=== PATIENT | female | born 1950 | race Caucasian/White ===

== ENCOUNTER → 2017-09-17 | Outpatient (CLI) | payer OTHER ==
[~2017-09-17] MED LIST: ASPIRIN81 M2 PO; ATENOLOL 50MG T50 MG PO; CARTIA XT240 M1 PO; DEMADEX20 MG PO; DILTIAZEM 24HR120 M2 PO; DOXYCYCLINE 10100 MG PO; KEFLEX500 MG PO; KETOCONAZOLE60 GM; KLOR-CON 1010 MEQ PO; LEVAQUIN 500 M500 M2 PO; LISINOPRIL20 MG PO; METFORMIN HCL500 MG PO; NEXIUM20 M1 PO; PAXIL 20 MG TAB20 M1 PO; PHENERGAN 25 MG25 M1 PO; PRADAXA150 MG PO; TRAMADOL 50 MG50 MG PO; VESICARE10 M1 PO; VITAMIN B-12500 MCG PO; ZOCOR20 MG PO
--- NOTE | ~2017-09-17 | 2DMMODE ---
[facility] [email or web address] [address] 2 D/M-MODE ECHOCARDIOGRAM Name: SHAYAN JONES Room #: REG CL [facility]#: [id number] Admission: 09/17/17 Attend Phys: Yakov Silva MD Discharge: Date of : 52 Date of Service: 09/17/17 1107 Report #: [id number] THIS REPORT FOR: //name// APPROVED REPORT Study performed: 09/17/2017 09:29:43 EXAM: Comprehensive 2D, Doppler, and color-flow Echocardiogram Patient Location: Echo lab Status: routine BSA: 2.59 HR: 98 bpm BP: 164/85 mmHg Other Information Study Quality: Technically Difficult Indications Diabetes Atrial Fibrillation Hypertension/HDD Echo Enhancing Agent Indication: Endocardial border delineation Agent(s) / Amount(s) Used: Agitated Saline 6 cc Optison 5 cc 2D Dimensions RVDd: 37.22 mm LVEF(%): 56.90 (>50%) IVSd: 10.13 (7-11mm) LVOT Diam: 23.15 (18-24mm) LVDd: 49.07 mm PWd: 11.19 (7-11mm) Ascending Ao: 29.38 (22-36mm) LVDs: 34.40 (25-40mm) Aortic Root: 26.46 mm IVC: 25.00 mm Terry's LVEF: 56.90 % Volumes Left Atrial Volume (Systole) Single Plane 4CH: 65.77 mL Single Plane 2CH: 54.05 mL LA ESV Index: 24.00 mL/m2 Aortic Valve AoV Peak Mateo.: 1.04 m/s AO Peak Gr.: 4.30 mmHg LVOT Max P.45 mmHg [facility] [address] [place] [address] 2 D/M-MODE ECHOCARDIOGRAM Name: SHAYAN JONES Room #: [facility]#: [id number] Admission: 09/17/17 Attend Phys: Yakov Silva MD Discharge: Date of : 52 Date of Service: 09/17/17 1107 Report #: [id number] LVOT Max V: 0.78 m/s MAXIMO Vmax: 3.18 cm2 Mitral Valve MV Decel. Time: 148.04 ms MV E Max Mateo.: 1.35 m/s IVRT: 57.67 ms Pulmonary Valve PV Peak Mateo.: 0.89 m/s PV Peak Gr.: 3.15 mmHg Pulmonary Vein P Vein S: 0.55 m/s P Vein D: 1.03 m/s P Vein S/D Ratio: 0.53 Tricuspid Valve TR Peak Mateo.: 3.12 m/s RAP Estimate: 10.00 mmHg TR Peak Gr.: 38.85 mmHg PA Pressure: 50.00 mmHg Left Ventricle The left ventricle is normal size. There is normal left ventricular wall thickness. Left ventricular systolic function is mildly decreased. LVEF is 45-50%. This study is not technically sufficient to allow evaluation of the LV diastolic function due to atrial fibrillation. Right Ventricle Right ventricle is at the upper limits of normal. The right ventricular systolic function is normal. Atria The left atrium size is normal. Right atrium is mildly dilated. Aortic Valve The aortic valve is not well visualized. No aortic regurgitation is present. There is no aortic valvular stenosis. Mitral Valve The mitral valve is normal in structure. Trace mitral regurgitation. No evidence of mitral valve stenosis. Tricuspid Valve The tricuspid valve is normal in structure. Trace tricuspid [facility] [address] [place] [address] 2 D/M-MODE ECHOCARDIOGRAM Name: MARBELLADUANESHAYAN Oly Room #: REG [facility]#: [id number] Admission: 09/17/17 Attend Phys: Yakov Silva MD Discharge: Date of : 52 Date of Service: 09/17/17 1107 Report #: [id number] regurgitation. PAP is estimated at 43 mmHg. Pulmonic Valve Pulmonic valve is not well visualized. Great Vessels The aortic root is normal in size. IVC is dilated and collapses >50% with inspiration. Pericardium There is no pericardial effusion. <Conclusion> Technically difficult study The left ventricle is normal size. There is normal left ventricular wall thickness. LVEF is 45-50%. Right ventricle is at the upper limits of normal. The left atrium size is normal. The aortic valve is not well visualized. Trace mitral regurgitation. Trace tricuspid regurgitation. PAP is estimated at 43 mmHg. <ELECTRONICALLY SIGNED> By: Yakov Silva MD 09/17/17 1107 1107 110 Yakov Silva MD /INF
== END ==
LOC: CV 07:14
DX: I48.91 Unspecified atrial fibrillation (principal); I10 Essential (primary) hypertension; E11.9 Type 2 diabetes mellitus without complications

== ENCOUNTER → 2018-03-12 | Outpatient (CLI) | payer OTHER ==
[~2018-03-12] VITALS: Ht 175.3 cm; Wt 159.3 kg
[~2018-03-12] MED LIST changes: +ATORVASTATIN CA40 MG PO; +ELIQUIS5 MG PO; +HYDROCODON-ACE1 EAC7 PO; +KETOCONAZOLE15 GM TOP; +NEURONTIN 300300 M1 PO
[2018-03-12 14:59] VITALS: BP 140/87
== END ==
LOC: PAIN 10:24
DX: M48.061 Spinal stenosis, lumbar region without neurogenic claudication (principal)

== ENCOUNTER → 2018-04-30 | Outpatient (CLI) | payer OTHER ==
[~2018-04-30] VITALS: Ht 175.3 cm; Wt 150.6 kg
--- NOTE | ~2018-04-30 | HPC ---
[facility] [address] [place] [address] PAIN MANAGEMENT CONSULTATION Name: SHAYAN JONES Room #: REG [facility] Noah.#: [id number] Admission: 04/30/18 Attend Phys: Sylvain Bautista MD Discharge: Date of : 52 Report #: [id number] THIS REPORT FOR: //name// CC: Clyde Bautista DATE OF SERVICE: 04/30/2018 CHIEF COMPLAINT: Here for medicine renewal. HISTORY: The patient is a 68-year-old female who has been experiencing pain since 1999. Continues to have pain in her lower back and has some pain radiating down to her legs. She has been diagnosed with spinal stenosis. Feels that the use of gabapentin and [place] have been beneficial. Rates her pain today as a 2/10. Pain continues to radiate down into both legs. Pain involves her thighs. Feels that her pain is exacerbated by "everything." Does not feel that anything significantly alleviates her pain, but finds that the gabapentin and the [place] medications provide some benefit. She would like to have her medications renewed. ALLERGIES: LEVAQUIN. CURRENT MEDICATIONS: Ketaconazole cream, Lipitor 40 mg, Eliquis 5 mg b.i.d., doxycycline 100 mg, diltiazem 120 mg, metformin 500 mg, potassium 10 mEq, Paxil 20 mg total of 40 mg daily, Nexium 20 mg, tramadol 50 mg q. 6 hours p.r.n., VESIcare 10 mg, atenolol 50 mg b.i.d., aspirin 81 mg, Demadex 20 mg, Zestril 20 mg. PAIN CLINIC ASSESSMENT/PQRS: 1. The patient is not being treated for osteoarthritis or rheumatoid arthritis. 2. Height 5 feet 9 inches, weight 322 pounds, BMI is 49. 3. Vital signs: Blood pressure is 110/95, pulse 125, respiratory rate 16, room air saturation is 98%. 4. Pain intensity 05/16. 5. Fall risk. The patient has not fallen in the last 3 months. 6. Blood thinner. The patient is on Eliquis because of history of atrial fibrillation. 7. History of hypertension. The patient is being treated for hypertension. 8. Opioids greater than 6 weeks. The patient [facility]. 9. Risk assessment tool, moderate use for opioid. 10. Functional assessment tool 53/70. 11. Recreational drug use. The patient denies use of recreational drugs. 12. Tobacco: The patient denies use of tobacco. 13. Alcohol: The patient denies use of alcoholic beverages. [address] [address] PAIN MANAGEMENT CONSULTATION Name: SHAYAN JONES Room #: REG [facility].#: [id number] Admission: 04/30/18 Attend Phys: Sylvain Bautista MD Discharge: Date of : 52 Report #: [id number] PHYSICAL EXAMINATION: GENERAL: The patient is a well-developed, well-nourished, obese white female, appears her stated age. She is alert and oriented x 3. Her affect is appropriate. Speech is fluent. HEENT: Normocephalic, atraumatic. Extraocular eye muscles intact. Sclerae nonicteric. Mucous membranes are moist. NECK: The patient is without adenopathy or JVD. LUNGS: Difficult to appreciate secondary to the patient's body habitus. No respiratory distress. HEART: History of atrial flutter. MUSCULOSKELETAL: The patient is in a wheelchair. The patient is without significant scoliosis, kyphosis or lordosis. Complains of pain in the lower back with pain that continues to radiate down into her legs. Has worsening of pain with prolonged standing. Complains of pain in her right knee. Has lower extremity edema with a history of lymphedema. IMPRESSION: 1. History of spinal stenosis with lumbar radiculopathy and pain in the L5 dermatomal distribution. 2. Hypertension. 3. Hyperlipidemia. 4. Depression. 5. Obstructive sleep apnea. 6. History of atrial fibrillation. 7. History of cellulitis. 8. History of lymphedema. 9. Type 2 diabetes. RECOMMENDATIONS: We discussed treatment options with the patient. At this juncture, we will continue with her medications. It seems that the medications going reasonably well. We will renew the hydrocodone 5 mg 1 p.o. t.i.d. The patient will continue the gabapentin 300 mg t.i.d. We will continue to monitor her progress. We explained that opioid medications can sometimes become less effective over time because of the development of tolerance. The patient also is aware of the possibility of addiction of developing secondary to use of opioid medications on a chronic basis. She feels her medications are helpful. I would like to have her medications renewed. A script for those medications have been rewritten. She will call us if she has any concerns. We would like to thank you for letting us participate in her care. We hope she continues to improve. By: 1814 0454 Sylvain Bautista MD /sascha
[2018-04-30 11:18] VITALS: BP 110/97
--- NOTE | 2018-04-30 11:48 | NUR ---
Pain Clinic Assessment: 1. History of Osteoarthritis: History of Rheumatoid Arthritis: 2. Height: 5 ft. 9 in. 175.3 cm. Weight: 332.0 lb. oz. 150.595 kg. Patient's BMI: 49.0 3. Vital Signs: BP: 110/97 Pulse: 125 Resp: 16 Temp: 02 Sat: 98 ECG Mon: 4. Pain Intensity: 2 5. Fall Risk: Dizziness: N Needs help standing or walking: Y Fallen in the last 3 months: N Fall risk comments: 6. Patient on Blood Thinner: *ELOQUIS 7. History of Hypertension: Y 8. Opioid Therapy greater than 6 weeks: N Opiate Contract Signed: 9. Risk Assessment Tool Provided: 10. Functional Assessment Tool: 53/ 11. Recreational Drug Use: Never Drug Type: Tobacco Use: Never Smoker Tobacco Type: Amount or Packs/day: How Many Years: Alcohol Use: No Frequency: Quant:
== END ==
LOC: PAIN 07:05
DX: M48.061 Spinal stenosis, lumbar region without neurogenic claudication (principal); M54.16 Radiculopathy, lumbar region; I10 Essential (primary) hypertension; E78.5 Hyperlipidemia, unspecified; F32.9 Major depressive disorder, single episode, unspecified; G47.33 Obstructive sleep apnea (adult) (pediatric); I48.91 Unspecified atrial fibrillation; E11.9 Type 2 diabetes mellitus without complications; Z87.2 Personal history of diseases of the skin and subcutaneous tissue; Z79.899 Other long term (current) drug therapy

== ENCOUNTER 2018-06-18 20:40 | Emergency (ER) | payer OTHER ==
[~2018-06-18] VITALS: Ht 175.3 cm; Wt 154.2 kg
[2018-06-18 21:44] LABS: CALCIUM 8.8 mg/dL (8.5-10.1); CREATININE 0.9 mg/dL (0.6-1.0); POTASSIUM 5.1 mmol/L (3.5-5.1)
[2018-06-18 22:31] LABS: BASOPHILS 0.9 % (0.0-2.0); EOSINOPHILS 3.2 % (0.0-3.0); HEMATOCRIT 37.7 % (37.0-47.0); HEMOGLOBIN 12.5 gm/dL (12.0-15.0); LYMPHOCYTES 19.9 % (24.0-44.0); MCH 28.5 pg (26.0-34.0); MCHC 33.1 g/dL (28.0-37.0); MONOCYTES 6.7 % (1.0-8.0); PLATELET COUNT 271 thou/uL (150-400); POLYS 69.3 % (36.0-66.0); RBC 4.39 mil/uL (4.20-5.00); RDW 14.5 % (10.5-14.5); WBC 7.2 thou/uL (4.0-11.0)
[2018-06-18 23:54] VITALS: BP 112/52
--- NOTE | 2018-06-20 13:26 | EKG ---
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 : 1950 Requested By: Elliott Osman Order Number: [id number] MD: David Nieves Measurements Intervals [place] Rate: 97 P: CO: QRS: -61 QRSD: 112 T: 8 QT: 375 QTc: 477 Interpretive Statements Atrial flutter Left anterior fascicular block Abnormal R-wave progression, late transition Compared to ECG 03/06/2016 11:24:19 No significant change was found Electronically Signed On 06-20-2018 13:26:20 CDT by David Nieves [email or web address] ��������������������������������������������� <ELECTRONICALLY SIGNED> ���������������������������������������� By: David Nieves MD, [facility] ��������������������������������������������� 06/20/18 1324 19 19 David Nieves MD, [facility] /EPI
== END 2018-06-18 23:38 | disposition home or self-care (01) ==
LOC: ER 20:40
PROVIDERS: Emergency Medicine
DX: E87.5 Hyperkalemia (principal); E11.9 Type 2 diabetes mellitus without complications; I10 Essential (primary) hypertension; Z88.1 Allergy status to other antibiotic agents

== ENCOUNTER 2018-06-21 14:09 | Inpatient (IN) | payer OTHER ==
[~2018-06-21] VITALS: Ht 22.9 cm; Wt 152.8 kg
--- NOTE | ~2018-06-21 | D ---
[facility] [place] [address] DISCHARGE SUMMARY Name: SHAYAN JONES Room #: 421-P [facility] IN .R.#: [id number] Admission: 06/21/18 ������������������ Attend Phys: Claudia Vigil Discharge: ������������������ Date of : 52 Report #: [id number] THIS REPORT FOR: //name// CC: Clyde Alston FINAL DIAGNOSES: 1. Uncontrolled diabetes type 2. 2. Atrial fibrillation. 3. Morbid obesity. HOSPITAL COURSE: The patient was admitted with uncontrolled blood sugars at home. She had failed oral treatment and the plan was to switch her to insulin. She received insulin administration education from nursing staff. A consult to the dietitian was placed for meal education for home. She was started on Lantus at bedtime with NovoLog at meals and doses were gradually increased. Other home medications were continued. Blood sugars were in the 200-300 range, which were improvement from home when she was running over 500 on oral treatment. On the day of discharge, she was awake and alert with stable vital signs. Two sets of lab work had revealed normal potassium level. Her exam was unremarkable including clear lung sounds, irregular heart sounds, obese abdomen with normal bowel sounds, and 1+ edema. DISPOSITION: She is discharged to home with diabetic diet, activity as tolerated. She will resume all home medications plus Lantus 35 units at bedtime and NovoLog 18 units with meals. I have asked her to check her blood sugars 4 times a day and to call in to the office daily and we will give additional instructions on insulin dosing for home. ��������������������������������������������� ���������������������������������������� By: ��������������������������������������������� 1326 1432 Pasha Flaherty MD /nt
[2018-06-21 17:21] VITALS: BP 130/73
--- NOTE | 2018-06-21 20:08 | NUR ---
PT ARRIVED TO FLOOR FROM [facility] OFFICE AT 1600.ADMISSION HX,ASSESSMENT AND CARE PLAN COMPLETED.DR OCHOA CALLED FOR ADMISSION ORDER AND MESSAGE LEFT. PT'S HAS $712 AND SOME CREDIT CARDS. SECURITY CALLED AND WAS TAKEN TO SAFE.REPORT OFF TO NOC RN.
[2018-06-21 20:49] LABS: ABSOLUTE NEUTROPHILS 4.9 thou/uL (1.4-8.2); BASOPHILS 0.9 % (0.0-2.0); EOSINOPHILS 3.4 % (0.0-3.0); HEMATOCRIT 40.6 % (37.0-47.0); HEMOGLOBIN 13.3 gm/dL (12.0-15.0); LYMPHOCYTES 21.6 % (24.0-44.0); MCH 27.9 pg (26.0-34.0); MCHC 32.7 g/dL (28.0-37.0); MCV 85.3 fL (80.0-100.0); MONOCYTES 8.9 % (1.0-8.0); PLATELET COUNT 262 thou/uL (150-400); POLYS 65.2 % (36.0-66.0); RBC 4.76 mil/uL (4.20-5.00); RDW 14.3 % (10.5-14.5); WBC 7.5 thou/uL (4.0-11.0)
[2018-06-21 20:56] LABS: CALCIUM 9.4 mg/dL (8.5-10.1); CREATININE 0.9 mg/dL (0.6-1.0); POTASSIUM 4.8 mmol/L (3.5-5.1)
[2018-06-21 21:59] VITALS: BP 110/45
--- NOTE | 2018-06-22 04:26 | NUR ---
GOT A CALL BACK FROM DR OCHOA.ADMISSION ORDERS NOTED AND CARRIED OUT.PT EDUCATED ON INSULIN ADMINISTRATION AND MGT.PT VOICED UNDERSTANDING.PT C/O BACK PAIN,ORDERS NOTED FROM DR SOTO,SEE EMAR.PT RESTING ON HER BED AT THIS TIME.CALL LIGHT WITHIN REACH.
[2018-06-22 04:42] VITALS: BP 99/45
[2018-06-22 07:45] VITALS: BP 122/90
--- NOTE | 2018-06-22 14:08 | NUR ---
PT ADMITTED RELATED TO HYPERKALEMIA. CM REVIEWED CHART AND SPOKE WITH CARE TEAM. CM MET WITH PT AT BEDSIDE THIS DAY. PT IS A&O X4. CM ROLE INTRODUCED. 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 PT INDICATED SHE HAD BEEN INDEPENDENT WITH GAIT IN THE HOME AND ADLS. PT INDICATED SHE USES A CANE TO GET TO AND FROM THE CAR AND A 4WW WITH A SEAT AT WORK. PT INDICATED NO HOME HEALTH HISTORY. PT INDICATED SHE PLANS TO RETURN HOME ONCE MEDICALLY STABLE. CM TO FOLLOW INDICATED WITH DC PLANNING.
--- NOTE | 2018-06-22 16:20 | NUR ---
Assumed pt care at 7am.Pt in and out of bed today for activities.Assessment completed.vss.Diabetic education given and pt verbalized understanding.Dr Flaherty here.order noted.No verbal c/o.Will continue to monitor.
[2018-06-22 16:59] VITALS: BP 119/43
[2018-06-22 19:32] VITALS: BP 128/58
[2018-06-23 04:18] VITALS: BP 132/49
--- NOTE | 2018-06-23 04:27 | NUR ---
Assumed care of pt at 1900. Pt alert and oriented x4. C/o chronic back pain. Pt educated on how to draw and administer insulin. Pt requests to see weather observer before being discharged from the hospital. Will report this to am nurse. Will continue to monitor and assist with needs as they arise.
[2018-06-23 06:23] LABS: CALCIUM 8.9 mg/dL (8.5-10.1); CREATININE 0.8 mg/dL (0.6-1.0); POTASSIUM 4.3 mmol/L (3.5-5.1)
[2018-06-23 07:10] VITALS: BP 121/55
--- NOTE | 2018-06-23 09:27 | H ---
[facility] [place] [address] HISTORY AND PHYSICAL Name: SHAYAN JONES Room #: 421-P ADM [place] ..#: [id number] Admission: 06/21/18 ������������������ Attend Phys: Claudia Vigil Discharge: ������������������ Date of : 52 Report #: [id number] THIS REPORT FOR: //name// CC: Clyde Alston DATE OF SERVICE: 06/21/2018 CHIEF COMPLAINT: Uncontrolled blood sugars. HISTORY OF PRESENT ILLNESS: The patient is a 68-year-old female admitted from the office for treatment and control of her diabetes. In recent days, she has reported that her blood sugars have been over 500 on her meter. She was seen in the Emergency Room recently and had elevated potassium. She was seen in the office yesterday and directed for admission. PAST MEDICAL HISTORY: Hypertension; dyslipidemia; depression; obstructive sleep apnea, on CPAP; atrial fibrillation; history of cellulitis; lymphedema; diabetes type 2 and iron-deficiency anemia. She had colonoscopy in 2009. PAST SURGICAL HISTORY: Noncontributory. FAMILY HISTORY: Unknown. SOCIAL HISTORY: She lives at home. No chronic alcohol or tobacco use. ALLERGIES: None. MEDICATIONS: Amaryl 4 mg, gabapentin 300 mg t.i.d., hydrocodone 5 mg t.i.d., VESIcare 10 mg, Cartia XT 120 mg, atenolol 50 mg one and a half twice a day, Paxil 20 mg, Nexium, lisinopril 20 mg, metformin 500 mg b.i.d., Lipitor 40 mg, Eliquis 5 mg twice a day, potassium 10 mEq, torsemide 20 mg to 40 mg daily and aspirin 81 mg a day. REVIEW OF SYSTEMS: She denies headache, chest pain, shortness of breath, abdominal pain, nausea, vomiting, diarrhea, constipation, dysuria or syncope. PHYSICAL EXAMINATION: VITAL SIGNS: Temperature 36.4, pulse 51, respirations 18 and blood pressure 99/45. GENERAL: She is awake and alert, in no distress. HEAD AND NECK: Unremarkable. LUNGS: Clear. HEART: Regular. ABDOMEN: Soft. Normoactive bowel sounds. Obese. EXTREMITIES: With 1+ edema. NEUROLOGIC: Cranial nerves intact. [address] [address] HISTORY AND PHYSICAL Name: SHAYAN JONES Room #: 421-P [facility] IN [facility].#: [id number] Admission: 06/21/18 ������������������ Attend Phys: Claudia Vigil Discharge: ������������������ Date of : 52 Report #: [id number] LABORATORY DATA: On lab review, her potassium is 4.8. Blood sugars are 208 to 232. ASSESSMENT: 1. Uncontrolled diabetes type 2. 2. Hypertension. 3. Atrial fibrillation. 4. Obstructive sleep apnea, on CPAP. 5. Morbid obesity. 6. Recent hyperkalemia. PLAN: Insulin has been ordered and we will adjust her home medications accordingly. Follow up lab data. Nursing to instruct on insulin administration. ��������������������������������������������� <ELECTRONICALLY SIGNED> ���������������������������������������� By: Pasha Flaherty MD ��������������������������������������������� 06/23/18 0927 1020 1039 Pasha Flaherty MD /nt
[2018-06-23] MEDS ORDERED: LANTUS100 UNIT/M SUBQ (12:10)
[2018-06-23] MEDS ORDERED: NOVOLOG100 UNIT/1 SUBQ (12:11)
[2018-06-23 13:06] VITALS: BP 121/55
[2018-06-23 13:43] VITALS: BP 121/55
[2018-06-23 15:26] VITALS: BP 121/55
== END 2018-06-23 15:30 | disposition home or self-care (01) | DRG 638 ==
LOC: 4E 14:09 → ENTRNSPT 06-23 15:22 → EDTRNSPTSTS 06-23 15:25 → 4E 06-23 15:30
PROVIDERS: Internal Medicine Geriatric Medicine; ADMIT Internal Medicine
DX: E11.65 Type 2 diabetes mellitus with hyperglycemia (principal); Z68.43 Body mass index [BMI] 50.0-59.9, adult; I48.91 Unspecified atrial fibrillation; E66.01 Morbid (severe) obesity due to excess calories; I10 Essential (primary) hypertension; E78.5 Hyperlipidemia, unspecified; F32.9 Major depressive disorder, single episode, unspecified; G47.33 Obstructive sleep apnea (adult) (pediatric); Z79.01 Long term (current) use of anticoagulants; Z79.82 Long term (current) use of aspirin; Z79.899 Other long term (current) drug therapy; Z88.1 Allergy status to other antibiotic agents
CPT/HCPCS: 10783

== ENCOUNTER → 2018-06-25 | Outpatient (CLI) | payer OTHER ==
[~2018-06-25] VITALS: Ht 175.3 cm; Wt 143.9 kg
[~2018-06-25] MED LIST changes: +LANTUS100 UNIT/M SUBQ; +MEDROLDOSEPACK PO; +NOVOLOG100 UNIT/1 SUBQ
--- NOTE | ~2018-06-25 | HPC ---
[facility] [address] [place] [address] PAIN MANAGEMENT CONSULTATION Name: SHAYAN JONES Room #: REG [facility] Sarah#: [id number] Admission: 06/25/18 ������������������ Attend Phys: Sylvain Bautista MD Discharge: ������������������ Date of : 52 Report #: [id number] THIS REPORT FOR: //name// CC: Clyde Bautista DATE OF SERVICE: 06/25/2018 CHIEF COMPLAINT: "Here for medication renewal." HISTORY: The patient is a 68-year-old female who has been referred to the Pain Clinic. She continues to have pain, which has been problematic since 1999. It involves her lower back. She notes pain that radiates down into her legs. She has a diagnosis of spinal stenosis. She has been using gabapentin as well as [place]. These have been beneficial. She has pain that radiates down into both legs. Her thighs were involved as well. She feels that her pain is exacerbated by mostly activities of daily living. She has returned to the Pain Clinic with a desire to have her medications renewed. She is now on insulin. She has had atrial flutter. Now that she is on the insulin medication, she feels her thoughts are somewhat clearer. ALLERGIES: LEVAQUIN. CURRENT MEDICATIONS: Ketaconazole cream, Lipitor 40 mg, Eliquis 5 mg b.i.d., doxycycline 100 mg, diltiazem 120 mg, metformin 500 mg, potassium 10 mEq, Paxil 20 mg - 40 mg daily, Nexium 20 mg, tramadol 50 mg q. six hours p.r.n., VESIcare 10 mg, atenolol 50 mg b.i.d., aspirin 81 mg, Demadex 20 mg, Zestril 20 mg, and insulin Lantus 100 units, is not sure how much she takes at this juncture. PAIN CLINIC ASSESSMENT/PQRS: 1. The patient is not being treated for osteoarthritis or rheumatoid arthritis. 2. Height 5 feet 9 inches, weight is 317 pounds, BMI is 46.8. 3. Vital signs: Blood pressure 91/37 - second blood pressure 89/45, respiratory rate is 14, pulse 88, respiratory rate 14, and on room saturation is 97%. 4. Pain intensity: 4-5/10. 5. Fall risk: The patient has not fallen in the last 3 months. 6. Blood thinner: The patient is on Eliquis, has a history of atrial flutter. 7. History of hypertension: The patient is being treated for hypertension. 8. Opioids greater than 6 weeks. 9. Risk assessment tool: Low for opioid use. 10. Functional assessment tool: . 11. Recreational drug use: The patient denies use of recreational drugs. 12. Tobacco: The patient is a former smoker, stopped in 1999. 12. Alcohol: The patient denies use of alcoholic beverages. [address] [address] PAIN MANAGEMENT CONSULTATION Name: SHAYAN JONES Room #: REG [facility] Sarah#: [id number] Admission: 06/25/18 ������������������ Attend Phys: Sylvain Bautista MD Discharge: ������������������ Date of : 52 Report #: [id number] PHYSICAL EXAMINATION: GENERAL: The patient is a somewhat obese white female. She appears her stated age. She is alert and oriented x 3. Affect is appropriate. Speech is fluent. HEENT: Normocephalic, atraumatic. Extraocular eye muscles intact. Sclerae nonicteric. The patient has glasses. Mucous membranes are moist. NECK: Without adenopathy or JVD. LUNGS: Difficult to appreciate, secondary to the patient's body habitus. No respiratory distress. HEART: History of atrial flutter. MUSCULOSKELETAL: The patient is in a wheelchair. Without significant scoliosis, kyphosis, or lordosis. She has pain and discomfort in the lower portion of her back with pain radiating down into her legs. Pain worsens with standing. She has a history of spinal stenosis. She complains of right knee pain and has edema with a lymphedema history in the lower extremities. IMPRESSION: 1. History of spinal stenosis with lumbar radicular pain in the L5 dermatomal distribution. 2. Hypertension. 3. Hyperlipidemia. 4. Depression. 5. Obstructive sleep apnea. 6. History of atrial fibrillation. 7. History of cellulitis. 8. History of lymphedema. 9. Type 2 diabetes. RECOMMENDATIONS: We discussed treatment options with the patient. At this juncture, we will continue with her medications. A script for her medications has been re-written. She will continue with the gabapentin medication 300 mg one p.o. t.i.d. and she will continue with hydrocodone 5/325s one p.o. t.i.d. The patient feels that the insulin may have helped clear her sensorium somewhat. She will continue with and monitor her blood sugars. She will call us if she has any concerns. We would like to thank you for letting us participate in her care. We hope she continues to improve. ��������������������������������������������� ���������������������������������������� By: ��������������������������������������������� 1719 0508 Sylvain Bautista MD /nt
[2018-06-25 11:25] VITALS: BP 91/37
== END ==
LOC: PAIN 06-18 06:50
DX: M48.061 Spinal stenosis, lumbar region without neurogenic claudication (principal); M54.16 Radiculopathy, lumbar region; I10 Essential (primary) hypertension; E78.5 Hyperlipidemia, unspecified; E11.9 Type 2 diabetes mellitus without complications; G47.33 Obstructive sleep apnea (adult) (pediatric); I48.91 Unspecified atrial fibrillation; F32.9 Major depressive disorder, single episode, unspecified; I89.0 Lymphedema, not elsewhere classified; L03.90 Cellulitis, unspecified; Z87.2 Personal history of diseases of the skin and subcutaneous tissue; Z79.899 Other long term (current) drug therapy

== ENCOUNTER → 2018-07-23 | Outpatient (CLI) | payer OTHER ==
[~2018-07-23] VITALS: Ht 175.3 cm; Wt 159.9 kg
[2018-07-23 10:50] VITALS: BP 144/62
--- NOTE | 2018-07-23 11:02 | NUR ---
Pain Clinic Assessment: 1. History of Osteoarthritis: History of Rheumatoid Arthritis: 2. Height: 5 ft. 9 in. 175.3 cm. Weight: 352.6 lb. oz. 159.939 kg. Patient's BMI: 52.0 3. Vital Signs: BP: 144/62 Pulse: 95 Resp: 20 Temp: 02 Sat: 98 ECG Mon: 4. Pain Intensity: 8 5. Fall Risk: Dizziness: Y Needs help standing or walking: Y Fallen in the last 3 months: N Fall risk comments: 6. Patient on Blood Thinner: *ELOQUIS 7. History of Hypertension: Y 8. Opioid Therapy greater than 6 weeks: Y Opiate Contract Signed: 06/25/18 9. Risk Assessment Tool Provided: Opioid Risk Tool 10. Functional Assessment Tool: 11. Recreational Drug Use: Never Drug Type: Tobacco Use: Former Smoker Tobacco Type: Amount or Packs/day: How Many Years: Alcohol Use: No Frequency: Quant:
--- NOTE | 2018-07-30 00:33 | HPC ---
[facility] [address] [place] [address] PAIN MANAGEMENT CONSULTATION Name: SHAYAN JONES [id number] Admission: 07/23/18 ������������������ Attend Phys: Sylvain Bautista MD Discharge: ������������������ Date of : 52 Report #: [id number] THIS REPORT FOR: //name// CC: PUNEET Bautista DATE OF SERVICE: 07/23/2018 CHIEF COMPLAINT: Low back pain, here for refill of medications. HISTORY: The patient is a 68-year-old female who has been seen in the pain clinic because of chronic pain. She has had back problems since about 1999. Has pain in her lower back. Has had pain that radiates down into the L5-S1 dermatomal distribution. Has been diagnosed with spinal stenosis. Finds that the gabapentin medication is helpful. Has been using [place] as well. Notes that activities of daily living can exacerbate her pain and discomfort. She notes that her sciatic pain has been more problematic since we saw her last. States that the pain has awaken her up at night. Has found it difficult to move her left leg on occasion. She has been somewhat tearful at night because of the severity of pain. It involves both sides at this juncture. ALLERGIES: LEVAQUIN. CURRENT MEDICATIONS: Ketaconazole cream, Lipitor 40 mg, Eliquis 5 mg b.i.d., doxycycline 100 mg, diltiazem 120 mg, metformin 500 mg, potassium 10 mEq, Paxil 40 mg daily, Nexium 20 mg, tramadol 50 mg q.6 hours., VESIcare 10 mg, atenolol 50 mg b.i.d., aspirin 81 mg, Demadex 20 mg, Zestril 20 mg, insulin Lantus 100 units. The patient uses insulin as prescribed. PAIN CLINIC ASSESSMENT/PQRS: 1. The patient is not being treated for osteoarthritis or rheumatoid arthritis, does have some in the low back area. 2. Height 5 feet 9 inches, weight 352 pounds, BMI is 52. 3. Vital signs: Blood pressure 141/62, pulse 95, respiratory rate 20, room air saturation 98%. 4. Pain intensity 11/13. 5. Fall risk. The patient has not fallen in the last 3 months. 6. Blood thinner. The patient is on Eliquis. 7. History of hypertension. The patient is being treated for hypertension. 8. Opioids greater than 6 weeks. The patient receives her medication from [facility]. 9. Risk assessment tool, low for opioid use. 10. Functional assessment tool . 11. Recreational drug use. The patient denies use of recreational drugs. 12. Tobacco: The patient is a former smoker. [address] [address] PAIN MANAGEMENT CONSULTATION Name: SHAYAN JONES [facility] [id number] Admission: 07/23/18 ������������������ Attend Phys: Sylvain Bautista MD Discharge: ������������������ Date of : 51 Report #: [id number] 13. Alcohol: The patient denies use of alcoholic beverages at this juncture. PHYSICAL EXAMINATION: GENERAL: The patient is a well-developed, well-nourished, somewhat morbidly obese white female, appears her stated age. She is alert and oriented x 3. Affect is appropriate. Speech is fluent. HEENT: Normocephalic, atraumatic. Extraocular eye muscles intact. Sclerae nonicteric. Mucous membranes are moist. NECK: Without adenopathy or JVD. LUNGS: Generally clear to auscultation. The patient provide some difficulty in auscultation secondary to her body habitus. HEART: History of atrial fibrillation. MUSCULOSKELETAL: The patient is in a wheelchair. The patient without significant scoliosis, kyphosis, or lordosis. Complains of pain and discomfort in lower portion of her back with pain that radiating down into the sciatic areas of her legs. States that at night, the pain sometimes become quite problematic and makes sleeping, difficult. Lymphedema in the lower extremities. IMPRESSION: 1. History of spinal stenosis with lumbar radicular pain in the L5 dermatomal distribution. 2. Hypertension. 3. Hyperlipidemia. 4. Depression. 5. Obstructive sleep apnea. 6. Atrial fibrillation. 7. Cellulitis. 8. Lymphedema. 9. Type 2 diabetes. RECOMMENDATIONS: We discussed treatment options with the patient. At this juncture, we will continue with her medications. She finds that the medications are helpful. She has been having some episodes where her pain has been quite problematic with radiation down into her legs at night. These pains have been quite severe. They have caused her to be tearful. She has returned today with a desire to continue with her medications. She is aware that opioid medications can be problematic in the long run. One could develop tolerance and find the medications, less effective. One could also developed a dependency on opioid medication. She feels that the medications are working well and would like to have them renewed. States she keeps her medications in a guarded area. A script for her medications have been rewritten. A script for hydrocodone 5/325 one p.o. t.i.d. as well as gabapentin 300 mg 1 p.o. t.i.d. have been rewritten. The patient will also be given a Medrol Dosepak to help with the sciatic pain. Hopefully, this will help decrease the pain and discomfort that she is having at [facility] [address] [place] [address] PAIN MANAGEMENT CONSULTATION Name: SHAYAN JONES [facility] [id number] Admission: 07/23/18 ������������������ Attend Phys: Sylvain Bautista MD Discharge: ������������������ Date of : 51 Report #: [id number] this juncture. We would like to thank you for letting us participate in her care. We hope she continues to improve. ��������������������������������������������� <ELECTRONICALLY SIGNED> ���������������������������������������� By: Sylvain Bautista MD ��������������������������������������������� 07/30/18 0033 1608 [id number] Sylvain Bautista MD /REMI
== END ==
LOC: PAIN 06:54
DX: G89.29 Other chronic pain (principal); M48.061 Spinal stenosis, lumbar region without neurogenic claudication; M54.40 Lumbago with sciatica, unspecified side; E78.5 Hyperlipidemia, unspecified; F32.9 Major depressive disorder, single episode, unspecified; G47.33 Obstructive sleep apnea (adult) (pediatric); I48.91 Unspecified atrial fibrillation; E11.9 Type 2 diabetes mellitus without complications; I10 Essential (primary) hypertension; Z88.8 Allergy status to other drugs, medicaments and biological substances; Z79.899 Other long term (current) drug therapy; Z79.891 Long term (current) use of opiate analgesic; Z79.84 Long term (current) use of oral hypoglycemic drugs; Z79.4 Long term (current) use of insulin

== ENCOUNTER → 2018-08-20 | Outpatient (CLI) | payer OTHER ==
[~2018-08-20] VITALS: Ht 175.3 cm; Wt 162.0 kg
[2018-08-20 09:48] VITALS: BP 117/72
--- NOTE | 2018-08-20 10:03 | NUR ---
Pain Clinic Assessment: 1. History of Osteoarthritis: Not Applicable History of Rheumatoid Arthritis: Not Applicable 2. Height: 5 ft. 9 in. 175.3 cm. Weight: 357.2 lb. oz. 162.025 kg. Patient's BMI: 52.7 3. Vital Signs: BP: 117/72 Pulse: 97 Resp: 20 Temp: 02 Sat: 97 ECG Mon: 4. Pain Intensity: 3 5. Fall Risk: Dizziness: N Needs help standing or walking: Y Fallen in the last 3 months: N Fall risk comments: 6. Patient on Blood Thinner: *ELOQUIS 7. History of Hypertension: Y 8. Opioid Therapy greater than 6 weeks: Y Opiate Contract Signed: 06/25/18 9. Risk Assessment Tool Provided: Opioid Risk Tool 10. Functional Assessment Tool: 11. Recreational Drug Use: Never Drug Type: Tobacco Use: Former Smoker Tobacco Type: Amount or Packs/day: How Many Years: Alcohol Use: No Frequency: Quant:
--- NOTE | 2018-08-23 12:51 | HPC ---
[facility] [address] [place] [address] PAIN MANAGEMENT CONSULTATION Name: SHAYAN JONES [facility] [id number] Admission: 08/20/18 ������������������ Attend Phys: Kirsten Sarkar Discharge: ������������������ Date of : 51 Report #: [id number] THIS REPORT FOR: //name// CC: Kirsten [facility]arkar [facility] DATE OF SERVICE: 08/20/2018 CHIEF COMPLAINT: Low back pain. HISTORY OF PRESENT ILLNESS: This is a 68-year-old female who returns to the pain clinic today for her chronic pain. She has had ongoing back pain that does radiate down her L5-S1 dermatomal distribution. She tells me that she is experiencing only pain in the posterior thighs today as well as in her lower back. She tells me that the Medrol Dosepak that Dr. Bautista prescribed for her last month was very helpful in reducing her pain. Her pain score today is 3/10. She said she has had a few flareups for a couple of days, but it has calmed down and is doing quite well. Her pain is worse with standing and walking. Her medication is helpful. She does use a walker and is seated in that today. The patient tells me that she does not have any problems with constipation or feeling overmedicated. We did discuss her blood sugars in relation to her steroid use. She tells me she had recently started insulin in June and is still trying to get the right units to be given, but her blood sugars did not flare when she took her Medrol Dosepak. She would like refills of her medication that she finds very helpful today. ALLERGIES: LEVAQUIN. CURRENT MEDICATIONS: Hydrocodone 5/325 t.i.d., Neurontin 30 mg t.i.d., NovoLog before meals, Lantus at bedtime, atorvastatin 40 mg daily, Eliquis 5 mg b.i.d., diltiazem 120 mg b.i.d., Paxil 40 mg daily, VESIcare 10 mg daily, atenolol 50 mg b.i.d., aspirin 81 mg daily. PQRS: 1. The patient is not being treated for osteoarthritis or rheumatoid arthritis, though does have some arthritic changes in her lower back. 2. Height is 5 feet 9 inches, weight is 357, BMI is 52. 3. VITAL SIGNS: Blood pressure 117/72, pulse is 97, respirations 20, oxygen sat is 97. 4. Pain score is 3/10. 5. Denies dizziness. Does use a walker and has not fallen in the last 3 months. 6. The patient does take Eliquis for blood thinner and does take medicines for hypertension. 7. Opioid therapy is greater than 6 weeks; therefore, an opioid signed contract is on the chart. Her risk assessment tool is low. [place] [address] PAIN MANAGEMENT CONSULTATION Name: ROBERTSHAYAN Room #: REG [facility] Smith#: [id number] Admission: 08/20/18 ������������������ Attend Phys: Kirsten Sarkar Discharge: ������������������ Date of : 51 Report #: [id number] 29/70. 8. Recreational drug use. She denies. She is a former smoker and does not drink alcohol. We did check the prescription monitoring system. The patient is filling appropriately in a timely fashion from Dr. Bautista and is due for her medications today. PHYSICAL EXAMINATION GENERAL: The patient is a well-developed, well-nourished, morbidly obese white female who appears her stated age. She is alert and orientated and her affect is appropriate. HEENT: Normocephalic, atraumatic. Extraocular eye muscles are intact. Mucous membranes are moist. HEART: History of atrial flutter. MUSCULOSKELETAL: The patient is seated in her walker chair today. She is without significant scoliosis, kyphosis or lordosis. She complains of pain that radiates across her lower back at the L5-S1 distribution down the posterior part of her buttocks into her thighs not past her thighs currently, though it has in the past. She has lymphedema in her lower extremities. Her lower extremity strength judged to be 4/5 in her muscle tone and strength. She walks with a slightly antalgic gait. We reviewed the fact that opiate medications are being used to provide analgesia adequate to support activities of daily living, not attempting to achieve a specific pain score on the 0-10 Visual Analog Scale. The current opiate medications are providing sufficient analgesia to allow the patient to participate in activities of daily living. The patient is not exhibiting any aberrant behavior suggestive of drug diversion. The patient is not having any adverse reactions to medications. The patient is not suffering from daytime somnolence or mental acuity changes. The patient is managing opiate-induced constipation with appropriate orme-swk-vhbgyfj agents and dietary considerations. The patient was counseled on concern for caution with operating a motor vehicle while using opiate medications. A physical exam was performed and the patient's functional status was evaluated. All patients with back pain were advised against the bed rest greater than 4 days and were advised to return to normal activities. Pain score assessment was noted and the treatment plan was reviewed with the patient. All current medications, both prescribed and OTC were reviewed and reconciled on the electronic medical record. Tobacco screening was accomplished and smoking cessation was advised when indicated. BMI was noted and diet/exercise modification was recommended for all patients following outside normal parameters. I reviewed with the patient today their responsibilities to safeguard [facility] [address] [place] [address] PAIN MANAGEMENT CONSULTATION Name: SHAYAN JONES Room #: REG [facility]#: [id number] Admission: 08/20/18 ������������������ Attend Phys: Kirsten Sarkar Discharge: ������������������ Date of : 51 Report #: [id number] prescription medications, reviewed their responsibility to utilize medications only as prescribed by the physician. They are to seek and receive pain medications only from 1 physician group ( [facility]). They are to use 1 pharmacy and keep the clinic informed if they change pharmacies. Their responsibilities include making followup visits in a timely fashion and to avoid abrupt discontinuation of medication usage. Their responsibilities further include bringing their medications (bottles from the pharmacy with residual pills) to the visit for possible confirmation of pill counts and the patient understands it is their responsibility to submit to random drug screens to ensure both that the medications prescribed are present, and that no other controlled substances are present. All prescriptions provided today were generated electronically. PLAN: 1. We discussed treatment options with the patient today. The patient feels like her current medications are very beneficial and would like to continue her hydrocodone and gabapentin. The patient falls at [address] below the CDC guidelines and this medication I think is helpful in keeping her active and working and is appropriate to refill that. Scripts given today for hydrocodone 5/325, #90 and gabapentin 300 mg 3 times a day, #90. 2. We did discuss the patient's blood sugars today. She tells me they are still running slightly higher than Dr. Alston would like them, but they have come down significantly from her 600. We discussed that the Medrol Dosepak does raise her blood sugars. She tells me they did raise slightly, but nothing as alarming as before. She understands that steroids can raise her blood sugar and will take those sparingly if she needs to, but she feels that her diabetes is getting better controlled since she has started her insulin. 3. The patient will return in 1 month for followup, appointment made today. 4. The patient is seen with Dr. Anthony Bautista who collaborated care. ��������������������������������������������� <ELECTRONICALLY SIGNED> ���������������������������������������� By: Kirsten Sarkar ��������������������������������������������� 08/23/18 1251 1040 [id number] Kirsten Sarkar /nt
== END ==
LOC: PAIN 06:56
DX: G89.29 Other chronic pain (principal); M54.5 Low back pain; Z88.8 Allergy status to other drugs, medicaments and biological substances; Z79.899 Other long term (current) drug therapy; Z79.891 Long term (current) use of opiate analgesic

== ENCOUNTER → 2018-09-17 | Outpatient (CLI) | payer OTHER ==
[~2018-09-17] VITALS: Ht 175.3 cm; Wt 163.2 kg
[~2018-09-17] MED LIST changes: -ATORVASTATIN CA40 MG PO; +KEFLEX500 M1 PO; +LIPITOR40 MG PO
[2018-09-17 09:20] VITALS: BP 127/96
--- NOTE | 2018-09-17 09:31 | NUR ---
Pain Clinic Assessment: 1. History of Osteoarthritis: no History of Rheumatoid Arthritis: Not Applicable 2. Height: 5 ft. 9 in. 175.3 cm. Weight: 359.8 lb. oz. 163.205 kg. Patient's BMI: 53.1 3. Vital Signs: BP: 127/96 Pulse: 120 Resp: 18 Temp: 02 Sat: 98 ECG Mon: 4. Pain Intensity: 3 5. Fall Risk: Dizziness: N Needs help standing or walking: Y Fallen in the last 3 months: N Fall risk comments: 6. Patient on Blood Thinner: *ELiquis 7. History of Hypertension: Y 8. Opioid Therapy greater than 6 weeks: Y Opiate Contract Signed: 06/25/18 9. Risk Assessment Tool Provided: Opioid Risk Tool 10. Functional Assessment Tool: 11. Recreational Drug Use: Never Drug Type: Tobacco Use: Former Smoker Tobacco Type: Amount or Packs/day: How Many Years: Alcohol Use: No Frequency: Quant:
--- NOTE | 2018-09-20 09:26 | HPC ---
[facility] [address] [place] [address] PAIN MANAGEMENT CONSULTATION Name: SHAYAN JONES [facility] [id number] Admission: 09/17/18 ������������������ Attend Phys: Kirsten Sarkar Discharge: ������������������ Date of : 51 Report #: [id number] THIS REPORT FOR: //name// CC: Kirsten Fallonsilverio Gamaliel DATE OF SERVICE: 09/17/2018 CHIEF COMPLAINT: Low back pain. HISTORY OF PRESENT ILLNESS: This is a very pleasant 68-year-old female who returns to the pain clinic today for her ongoing back pain. She tells me that it does radiate down her leg, past her knees, following the L5-S1 dermatomal distribution she tells me that some days in the past month, she did not even think about her pain. She felt like she had none at all. Then, other times she had flareups causing her even to awake during the night. Her pain is a 3/10 today, worse with standing and walking, though she does have pain sometimes when she is lying down as well. Her medications she finds very helpful. She tells me that she has no problems with constipation from her narcotic medicine and does not feel overmedicated. We did discuss the patient's blood sugars. She tells me it was 171 this morning that she is suffering from a respiratory infection and on antibiotics, so she feels that is the cause for it to be slightly elevated, though at lunchtime her blood sugars have been running at 90-120. She feels that they are better regulated than before using her insulin now and she did recently have an A1c drawn from Dr. Alston's office, though she does not know those results. I did remind her that she had a Medrol Dosepak in July that may have elevated her blood sugars slightly that caused an increase in her A1c also, but hopefully that with her insulin these numbers have gotten better. ALLERGIES: LEVAQUIN. CURRENT MEDICATIONS: Keflex 500 mg b.i.d., hydrocodone 5/325 t.i.d., Neurontin 300 mg t.i.d., insulin NovoLog sliding scale, Lantus 40 units at bedtime, Lipitor 40 mg daily, Eliquis 5 mg b.i.d., Cardizem 120 mg b.i.d., Paxil 40 mg daily, VESIcare 10 mg daily, atenolol 50 mg b.i.d., aspirin 81 mg daily. PQRS: She is not being treated for osteoarthritis or rheumatoid arthritis, though she does have some arthritic changes in her lumbar spine. Height is 5 feet 9 inches, weight is 359, BMI is 53. Vital signs, blood pressure 127/96, pulse is 120, respirations 18, oxygen sat is 98. Pain score is 3/10 while resting. Denies dizziness. She does use a walker. Has not fallen in the last 3 months. She is on a blood thinner, Eliquis. She does take medicine for hypertension. Her opiate therapy is greater than 6 weeks; therefore, an opiate signed contract is on the chart. Her risk assessment tool is low. Functional [address] [address] PAIN MANAGEMENT CONSULTATION Name: SHAYAN JONES [facility] #: [facility] [id number] Admission: 09/17/18 ������������������ Attend Phys: Kirsten Sarkar Discharge: ������������������ Date of : 51 Report #: [id number] assessment . Recreational drug use. She is a former smoker and does not drink alcohol. We did check the prescription monitoring system. The patient is filling appropriately for her medications and she is due today. We will check a random drug screen on her since there is not one on the chart and we have been seeing her for about 6 months now for medication management. PHYSICAL EXAMINATION: GENERAL: This is a well-developed, well-nourished, morbidly obese female who appears her stated age, placing her current pain score today at 3. She is alert and orientated and her affect is appropriate. HEENT: Normocephalic, atraumatic. Extraocular eye muscles are intact. Mucous membranes are moist. MUSCULOSKELETAL: She is seated in her walker chair today. She is without significant kyphosis, lordosis, or scoliosis. Complains of pain that radiates from her lower back down her L5-S1 dermatomal distribution of her left leg slightly past her knee down the posterior aspect. She does complain of some stabbing pain in this leg. She has lymphedema in her lower extremities. She walks with a slightly antalgic gait. Her lower extremity strength judged to be 4/5 and muscle tone and strength. We reviewed the fact that opiate medications are being used to provide analgesia adequate to support activities of daily living, not attempting to achieve a specific pain score on the 0-10 Visual Analog Scale. The current opiate medications are providing sufficient analgesia to allow the patient to participate in activities of daily living. The patient is not exhibiting any aberrant behavior suggestive of drug diversion. The patient is not having any adverse reactions to medications. The patient is not suffering from daytime somnolence or mental acuity changes. The patient is managing opiate-induced constipation with appropriate qbho-ehk-elfamyp agents and dietary considerations. The patient was counseled on concern for caution with operating a motor vehicle while using opiate medications. A physical exam was performed and the patient's functional status was evaluated. All patients with back pain were advised against the bed rest greater than 4 days and were advised to return to normal activities. Pain score assessment was noted and the treatment plan was reviewed with the patient. All current medications, both prescribed and OTC were reviewed and reconciled on the electronic medical record. Tobacco screening was accomplished and smoking cessation was advised when indicated. BMI was noted and diet/exercise modification was recommended for all patients following outside normal parameters. I reviewed with the patient today their responsibilities to safeguard prescription medications, reviewed their responsibility to utilize medications only as prescribed by the physician. They are to seek and receive pain medications only from 1 physician group ( [facility]). They are to use [address] [address] PAIN MANAGEMENT CONSULTATION Name: SHAYAN JONES Room #: REG [facility]#: [id number] Admission: 09/17/18 ������������������ Attend Phys: Kirsten Sarkar Discharge: ������������������ Date of : 51 Report #: [id number] pharmacy and keep the clinic informed if they change pharmacies. Their responsibilities include making followup visits in a timely fashion and to avoid abrupt discontinuation of medication usage. Their responsibilities further include bringing their medications (bottles from the pharmacy with residual pills) to the visit for possible confirmation of pill counts and the patient understands it is their responsibility to submit to random drug screens to ensure both that the medications prescribed are present, and that no other controlled substances are present. All prescriptions provided today were generated electronically. DIAGNOSES: 1. History of spinal stenosis with lumbar radicular pain at the L5 dermatomal distribution. 2. Hypertension. 3. Atrial fibrillation. 4. Lymphedema. 5. Type 2 diabetes, recently on insulin. PLAN: 1. We discussed treatment options with the patient today. The patient feels that her pain regimen is doing quite well. She says over the past 6 months she is better than before she came here. Script was given today for hydrocodone 5/325, #90 for 1 month and gabapentin 300 mg #90 with 2 additional refills. The patient is currently at 15 morphine MME's according to the CDC guidelines well below their threshold of 50. 2. We did collect a urine specimen on this patient today. 3. We did discuss her blood sugars again and they have slowly been getting better regulated since her insulin. The patient is seen today in collaboration with Dr. Eliseo Rodriguez who has discussed this patient and is available by phone if I needed to make any alterations in her plan of care. ��������������������������������������������� <ELECTRONICALLY SIGNED> ���������������������������������������� By: Kirsten Sarkar ��������������������������������������������� 09/20/18 0926 1021 [id number] Kirsten Sarkar /sascha
== END ==
LOC: PAIN 06:49
DX: M48.061 Spinal stenosis, lumbar region without neurogenic claudication (principal); M54.16 Radiculopathy, lumbar region; I10 Essential (primary) hypertension; I48.91 Unspecified atrial fibrillation; E11.9 Type 2 diabetes mellitus without complications; I89.0 Lymphedema, not elsewhere classified; Z79.4 Long term (current) use of insulin; Z79.899 Other long term (current) drug therapy

== ENCOUNTER → 2018-10-15 | Outpatient (CLI) | payer OTHER ==
[~2018-10-15] VITALS: Ht 175.3 cm; Wt 169.6 kg
[~2018-10-15] MED LIST changes: +NORCO 5-325 TA1 EAC1 PO; +SUPER B-50 COM1 EACH PO
--- NOTE | ~2018-10-15 | HPC ---
[facility] [address] [place] [address] PAIN MANAGEMENT CONSULTATION Name: SHAYAN JONES [id number] Admission: 10/15/18 ������������������ Attend Phys: Sylvain Bautista MD Discharge: ������������������ Date of : 52 Report #: [id number] THIS REPORT FOR: //name// CC: Clyde Bautista DATE OF SERVICE: 10/15/2018 CHIEF COMPLAINT: Here for medication renewal. The medications are helpful. HISTORY: The patient is a 68-year-old female who has been followed in the pain clinic because of pain that radiates down into her legs, knees and she is experiencing pain in the the L5-S1 dermatomal distribution. She has returned today for evaluation and assessment regarding her medications. She has pain in the low back that continues to radiate down into both thighs. She has also problems with fibromyalgia. Her pain in the low back area has been problematic since 1999. Notes that the pain is worse when she is standing. Notes that it can flare up. Pain intensity is a 2 today. Notes it is exacerbated with walking. Medications, continue to be beneficial and she has taken them as prescribed. She is not having any untoward problems with the opioid medications. Does have a history of elevated blood sugars. She is watching this. ALLERGIES: LEVAQUIN. CURRENT MEDICATIONS: Hydrocodone 5/325 one p.o. t.i.d., Neurontin 300 mg t.i.d., insulin NovoLog sliding scale, Lantus 40 units at bedtime, Lipitor 40 mg, Eliquis 5 mg b.i.d., Cardizem 120 mg b.i.d., Paxil 40 mg daily, VESIcare 10 mg daily, atenolol 50 mg b.i.d., aspirin 81 mg. PAIN CLINIC ASSESSMENT/PQRS: 1. The patient is not being treated for osteoarthritis. She is not being treated for rheumatoid arthritis. 2. Height 5 feet 9 inches, weight 374 pounds, BMI 55.2. 3. VITAL SIGNS: Blood pressure 137/82, pulse 95, respiratory rate 22, saturation 97%. 4. Pain intensity 05/16. 5. Fall history: The patient has not fallen in the last 3 months. 6. Blood thinner. The patient is on Eliquis for atrial flutter. 7. History of hypertension. The patient is being treated for hypertension. 8. The patient is not being treated for hypertension. The atenolol is for rate control. 9. Opioids greater than 6 weeks. The patient is receiving opioid medications from the pain clinic to help control her pain. 10. Risk assessment tool: Low for opioid use. 11. Functional assessment 229/70. [address] [address] PAIN MANAGEMENT CONSULTATION Name: SHAYAN JONES Room #: REG CL Sarah#: [id number] Admission: 10/15/18 ������������������ Attend Phys: Sylvain Bautista MD Discharge: ������������������ Date of : 52 Report #: [id number] 12. Recreational drug use. The patient denies. 13. Tobacco: The patient has not smoked since 2000. 14. Alcohol: The patient denies use of alcoholic beverages. PHYSICAL EXAMINATION: GENERAL: The patient is a well-developed, well-nourished white female. Morbidly obese. She is alert, oriented x 3. Her affect is appropriate. Speech is fluent. HEENT: Normocephalic, atraumatic. Extraocular eye muscles intact. Sclerae nonicteric. The patient is wearing glasses. Mucous membranes are moist. NECK: Without adenopathy or JVD. LUNGS: Difficult to hear given the patient's body habitus. No respiratory complaints. ABDOMEN: Protuberant. MUSCULOSKELETAL: The patient without significant scoliosis, kyphosis or lordosis. The patient has some pain that radiates down to the lower portion of her back into the L5-S1 dermatomal distribution on her left leg. Also, has some pain and problems with lymphedema in her lower extremities. Walks with an antalgic gait. She uses a rolling walker. Muscle strength is judged to be 4+/5 for the major muscle groups in the lower extremity and 5-/5 for the major muscle groups in the upper extremity. IMPRESSION: 1. History of spinal stenosis with lumbar radicular pain in the L5 dermatomal distribution. 2. Hypertension. 3. Rapid heart rate, treated with atenolol. 4. Hyperlipidemia. 5. Depression. 6. Obstructive sleep apnea. 7. Atrial flutter. 8. Cellulitis history. 9. Lymphedema. 10. Type 2 diabetes. RECOMMENDATIONS: We discussed treatment options with the patient. At this juncture, we will continue with her medication. She feels that the medication is helpful. She has been taking the medication as prescribed. She does not have any problems with it. We have discussed the risks and benefits of opioid medications intermediate. Some patients have had problems with medication where they become addictive. She does not feel that this is a concern for her at this juncture. She also is taking the medication as prescribed. We explained that sometimes pain medications are not effective over a long periods of time due to development of tolerance. The patient states that she is taking her medication as prescribed and would like to continue with its use. She finds that she is able to engage in activities, she would not be able to without its use. [facility] [address] [place] [address] PAIN MANAGEMENT CONSULTATION Name: SHAYAN JONES [facility] [id number] Admission: 10/15/18 ������������������ Attend Phys: Sylvain Bautista MD Discharge: ������������������ Date of : 52 Report #: [id number] her medications in a guarded area. She is aware that 72,000 people last year as a result of overdosing with medication. A script for her medications have been written. She will continue with hydrocodone 5/325 one p.o. t.i.d. The patient will also continue with Neurontin 300 mg 1 p.o. t.i.d. She will call us if she has any concerns. We would like to thank you for letting us participate in her care and can help control pain with complex medical regimen using opioid medications. ��������������������������������������������� ���������������������������������������� By: ��������������������������������������������� [id number] Sylvain Bautista MD /nt
[2018-10-15 09:56] VITALS: BP 137/82
--- NOTE | 2018-10-15 10:20 | NUR ---
Pain Clinic Assessment: 1. History of Osteoarthritis: no History of Rheumatoid Arthritis: Not Applicable 2. Height: 5 ft. 9 in. 175.3 cm. Weight: 374.0 lb. oz. 169.646 kg. Patient's BMI: 55.2 3. Vital Signs: BP: 137/82 Pulse: 95 Resp: 22 Temp: 02 Sat: 97 ECG Mon: 4. Pain Intensity: 2-TODAY 5. Fall Risk: Dizziness: N Needs help standing or walking: Y Fallen in the last 3 months: N Fall risk comments: 6. Patient on Blood Thinner: *Biancaquis 7. History of Hypertension: Y 8. Opioid Therapy greater than 6 weeks: Y Opiate Contract Signed: 06/25/18 9. Risk Assessment Tool Provided: Opioid Risk Tool 10. Functional Assessment Tool: 11. Recreational Drug Use: Never Drug Type: Tobacco Use: Former Smoker Tobacco Type: Amount or Packs/day: How Many Years: Alcohol Use: No Frequency: Quant:
== END ==
LOC: PAIN 06:43
DX: M48.061 Spinal stenosis, lumbar region without neurogenic claudication (principal); E78.5 Hyperlipidemia, unspecified; I10 Essential (primary) hypertension; F32.9 Major depressive disorder, single episode, unspecified; G47.33 Obstructive sleep apnea (adult) (pediatric); E11.9 Type 2 diabetes mellitus without complications; I89.0 Lymphedema, not elsewhere classified; Z88.8 Allergy status to other drugs, medicaments and biological substances; Z79.899 Other long term (current) drug therapy; Z79.4 Long term (current) use of insulin

== ENCOUNTER → 2018-11-17 | Outpatient (CLI) | payer OTHER ==
[~2018-11-17] VITALS: Ht 175.3 cm; Wt 170.7 kg
[2018-11-17 14:01] VITALS: BP 154/75
--- NOTE | 2018-11-17 14:23 | NUR ---
Pain Clinic Assessment: 1. History of Osteoarthritis: Left Lower Extremity Right Upper Extremity History of Rheumatoid Arthritis: Not Applicable 2. Height: 5 ft. 9 in. 175.3 cm. Weight: 376.4 lb. oz. 170.735 kg. Patient's BMI: 55.6 3. Vital Signs: BP: 154/75 Pulse: 100 Resp: 22 Temp: 02 Sat: 100 ECG Mon: 4. Pain Intensity: 2-TODAY 5. Fall Risk: Dizziness: N Needs help standing or walking: Y Fallen in the last 3 months: N Fall risk comments: 6. Patient on Blood Thinner: *ELiquis 7. History of Hypertension: Y 8. Opioid Therapy greater than 6 weeks: Y Opiate Contract Signed: 06/25/18 9. Risk Assessment Tool Provided: Opioid Risk Tool 10. Functional Assessment Tool: 11. Recreational Drug Use: Never Drug Type: Tobacco Use: Former Smoker Tobacco Type: Amount or Packs/day: How Many Years: Alcohol Use: No Frequency: Quant:
--- NOTE | 2018-11-18 15:37 | HPC ---
[facility] [address] [place] [address] PAIN MANAGEMENT CONSULTATION Name: SHAYAN JONES Room #: REG [facility]#: [id number] Admission: 11/17/18 Attend Phys: Kirsten Sarkar Discharge: Date of : 52 Report #: [id number] THIS REPORT FOR: //name// CC: Kirsten Sarkar [facility] DATE OF SERVICE: 11/17/2018 CHIEF COMPLAINT: Low back pain and bilateral leg pain. HISTORY OF PRESENT ILLNESS: This is a very pleasant 68-year-old female who returns to the pain clinic today for refill of her medications that she uses to help treat her low back pain that does radiate down her bilateral legs into her knees following the L5-S1 dermatomal distribution. She finds the medication of hydrocodone very beneficial in controlling some of her pain, rating her pain score today at 2/10. Her pain is exacerbated with standing and walking, but distraction and repositioning as well as medication is very helpful. She denies any problems with daytime sleepiness or constipation. The patient does report having some slight discomfort in her left shoulder. She is unsure what is causing that and it has been ongoing for several days. She does not remember injuring it in any way. ALLERGIES: LEVOFLOX, LEVAQUIN. CURRENT LIST OF MEDICATIONS: Minerva 5 mg 3 times a day, vitamin B12, vitamin B50 complex, gabapentin, NovoLog, Lantus, Lipitor, Eliquis, diltiazem, Paxil, VESIcare, atenolol, and aspirin. PQRS: 1. She is being treated for osteoarthritis and not being treated for rheumatoid arthritis. 2. Height is 5 feet 9 inches, weight is 376, BMI is 55. 3. Vital signs: Blood pressure 154/75, pulse is 100, respirations 22, oxygen sat is 100. 4. Pain score is 2/10. 5. Denies dizziness. Does need help walking. She uses a walker at all times. Has not fallen in the last 3 months. 6. The patient is on Eliquis and also takes medicine for hypertension. 7. Opioid therapy is greater than 6 weeks; therefore, an opioid signed contract is on the chart. Her risk assessment tool is low. Functional assessment is 29/70. 8. Recreational drug use, she denies. She is a former smoker and does not drink alcohol. According to the prescription monitoring system, the patient is filling appropriately for her medications. She is due to fill those medications today. We have also a random drug screen on the chart from earlier this year that is [place] [address] PAIN MANAGEMENT CONSULTATION Name: MARBELLADUANESHAYAN Room #: REG [facility] Luisa Smith#: [id number] Admission: 11/17/18 Attend Phys: Kirsten Sarkar Discharge: Date of : 52 Report #: [id number] PHYSICAL EXAMINATION: GENERAL: This is a well-developed, well-nourished white female who is morbidly obese. She is alert and orientated and her speech is fluent. HEENT: Normocephalic, atraumatic. Extraocular eye muscles are intact. Mucous membranes are moist. She is wearing glasses. NECK: Without adenopathy or JVD. ABDOMEN: Protuberant. MUSCULOSKELETAL: The patient walks without significant scoliosis, kyphosis or lordosis. She has pain that radiates from the lumbar spine down following the L5-S1 dermatomal distribution of her bilateral legs, left greater than right. She walks with an antalgic gait using a rolling walker. Her muscle strength judged to be 4/5 for all major muscle groups in her lower extremities. IMPRESSION: 1. History of spinal stenosis of the lumbar radicular pain following the L5 dermatomal distribution. 2. Hypertension. 3. Depression. 4. Obstructive sleep apnea. 5. Atrial flutter. 6. Lymphedema. 7. Type 2 diabetic. We reviewed the fact that opiate medications are being used to provide analgesia adequate to support activities of daily living, not attempting to achieve a specific pain score on the 0-10 Visual Analog Scale. The current opiate medications are providing sufficient analgesia to allow the patient to participate in activities of daily living. The patient is not exhibiting any aberrant behavior suggestive of drug diversion. The patient is not having any adverse reactions to medications. The patient is not suffering from daytime somnolence or mental acuity changes. The patient is managing opiate-induced constipation with appropriate [id number] agents and dietary considerations. The patient was counseled on concern for caution with operating a motor vehicle while using opiate medications. A physical exam was performed and the patient's functional status was evaluated. All patients with back pain were advised against the bed rest greater than 4 days and were advised to return to normal activities. Pain score assessment was noted and the treatment plan was reviewed with the patient. All current medications, both prescribed and OTC were reviewed and reconciled on the electronic medical record. Tobacco screening was accomplished and smoking cessation was advised when indicated. BMI was noted and diet/exercise modification was recommended for all patients following outside normal parameters. [address] [address] PAIN MANAGEMENT CONSULTATION Name: SHAYAN JONES Room #: REG JOSAFAT Smith#: [id number] Admission: 11/17/18 Attend Phys: Kirsten Sarkar Discharge: Date of : 52 Report #: [id number] I reviewed with the patient today their responsibilities to safeguard prescription medications, reviewed their responsibility to utilize medications only as prescribed by the physician. They are to seek and receive pain medications only from 1 physician group ( [facility]). They are to use 1 pharmacy and keep the clinic informed if they change pharmacies. Their responsibilities include making followup visits in a timely fashion and to avoid abrupt discontinuation of medication usage. Their responsibilities further include bringing their medications (bottles from the pharmacy with residual pills) to the visit for possible confirmation of pill counts and the patient understands it is their responsibility to submit to random drug screens to ensure both that the medications prescribed are present, and that no other controlled substances are present. All prescriptions provided today were generated electronically. PLAN: 1. We discussed treatment options with the patient today. Overall, the patient is doing quite well on current medication regimen. Scripts given today for hydrocodone 5/325, #90, as the patient is seen on a monthly basis. The patient will call in one month for an appointment. 2. The patient is seen with Dr. Anthony Bautista who collaborated care today as well. <ELECTRONICALLY SIGNED> By: Kirsten Sarkar 11/18/18 1537 [id number] Kirsten Sarkar /nt
== END ==
LOC: PAIN 11-12 09:16
DX: M54.16 Radiculopathy, lumbar region (principal); M48.062 Spinal stenosis, lumbar region with neurogenic claudication; I10 Essential (primary) hypertension; F32.9 Major depressive disorder, single episode, unspecified; G47.33 Obstructive sleep apnea (adult) (pediatric); E11.9 Type 2 diabetes mellitus without complications; I48.92 Unspecified atrial flutter; I89.0 Lymphedema, not elsewhere classified; Z79.899 Other long term (current) drug therapy; Z79.82 Long term (current) use of aspirin; Z79.4 Long term (current) use of insulin; Z88.8 Allergy status to other drugs, medicaments and biological substances

== ENCOUNTER → 2019-01-19 | Outpatient (CLI) | payer OTHER ==
[~2019-01-19] VITALS: Ht 175.3 cm; Wt 168.5 kg
[~2019-01-19] MED LIST changes: +NEURONTIN 300M300 M2 PO
[2019-01-19 10:02] VITALS: BP 140/65
--- NOTE | 2019-01-19 10:06 | NUR ---
Pain Clinic Assessment: 1. History of Osteoarthritis: Left Lower Extremity Right Upper Extremity History of Rheumatoid Arthritis: Not Applicable 2. Height: 5 ft. 9 in. 175.3 cm. Weight: 371.4 lb. oz. 168.467 kg. Patient's BMI: 54.8 3. Vital Signs: BP: 140/65 Pulse: 89 Resp: 18 Temp: 02 Sat: 98 ECG Mon: 4. Pain Intensity: 8-9 5. Fall Risk: Dizziness: N Needs help standing or walking: Y Fallen in the last 3 months: N Fall risk comments: 6. Patient on Blood Thinner: *ELiquis 7. History of Hypertension: Y 8. Opioid Therapy greater than 6 weeks: Y Opiate Contract Signed: 06/25/18 9. Risk Assessment Tool Provided: Opioid Risk Tool 10. Functional Assessment Tool: 11. Recreational Drug Use: Never Drug Type: Tobacco Use: Former Smoker Tobacco Type: Amount or Packs/day: How Many Years: Alcohol Use: No Frequency: Quant:
--- NOTE | 2019-01-20 08:40 | HPC ---
[facility] [address] [place] [address] PAIN MANAGEMENT CONSULTATION Name: SHAYAN JONES Room #: REG [facility]#: [id number] Admission: 01/19/19 Attend Phys: Kirsten Sarkar Discharge: Date of : 52 Report #: [id number] THIS REPORT FOR: //name// CC: Kirsten Sarkar [facility] DATE OF SERVICE: 01/19/2019 CHIEF COMPLAINT: Low back pain and bilateral leg pain. HISTORY OF PRESENT ILLNESS: This is a 68-year-old female who returns to the pain clinic today for refill of her medications that she uses to help treat her ongoing low back pain, bilateral hip pain and left shoulder pain. She reports that she had an orthopedic doctor injected her shoulder last week and it has been slowly feeling slightly better. She feels like she has better movement in that shoulder since this injection. She reports a pain score of 8-9 today. Most of that pain is located in the shoulder, but again some in her lower back. She feels that her pain is worse when she is walking and standing as well as using her left arm. Her medications have been very beneficial. She has not been here for the 2 months. She has made her medications last longer than normal. She felt that she could "stretch" her medicines since she felt like she was doing slightly better. She said some days she did have more significant pain and just take regular Tylenol. Today, she denies any problems with constipation or daytime sleepiness from her medications. ALLERGIES: LEVAQUIN. CURRENT LIST OF MEDICATIONS: Hydrocodone 5/325 p.r.n., vitamin B12, vitamin B50, gabapentin 300 mg t.i.d., insulin NovoLog sliding scale, Lantus 40 units at bedtime, Lipitor 40 mg daily, Eliquis 5 mg b.i.d., Cardizem 120 mg b.i.d., Paxil 40 mg daily, VESIcare 10 mg daily, atenolol 50 mg b.i.d. and aspirin 81 mg. PQRS: 1. She is being treated for osteoarthritis and not being treated for rheumatoid arthritis. 2. Height is 5 feet 9 inches, weight is 371, BMI is 54. 3. Vital signs 140/65, pulse is 89, respirations 18, oxygen sat is 98. 4. Pain score is 8-9/10. 5. Denies dizziness. Does need help walking. She uses a walker. Has not fallen in the last 3 months. 6. The patient is on Eliquis and also takes medicine for hypertension. 7. Opiate therapy is greater than 6 weeks; therefore, an opioid signed contract is on the chart. Her risk assessment tool is low. Functional assessment is 29/70. 8. Recreational drug use, she denies. She is a former smoker and does not drink alcohol. [address] [address] PAIN MANAGEMENT CONSULTATION Name: SHAYAN JONES [id number] Admission: 01/19/19 Attend Phys: Kirsten Sarkar Discharge: Date of : 52 Report #: [id number] According to the prescription monitoring system, she last filled her hydrocodone 2 months ago, which is with her report. There is a recent drug screen on the chart as well that is appropriate for her medications. PHYSICAL EXAMINATION: GENERAL: This is a well-developed, well-nourished, morbidly obese female who appears her stated age, placing her current pain score at 8-9 today. HEENT: Normocephalic, atraumatic. Extraocular eye muscles are intact. Mucous membranes are moist. She is wearing glasses. NECK: Without adenopathy or JVD. ABDOMEN: Protuberant, nontender. MUSCULOSKELETAL: She is without significant scoliosis, kyphosis or lordosis. She walks with an antalgic gait using a rolling walker. She has pain and tenderness in her left shoulder with rotation and abduction. She has tenderness in her lumbar spine across her hips that radiates into the L5-S1 dermatomal distribution. Her muscle strength in her lower extremities judged to be 4/5 in all major muscle groups. IMPRESSION: 1. History of spinal stenosis. 2. Lumbar radiculopathy following the L5-S1 dermatomal distribution. 3. Hypertension. 4. Depression. 5. Atrial flutter. 6. Type 2 diabetes. 7. Left shoulder pain with osteoarthritis. We reviewed the fact that opiate medications are being used to provide analgesia adequate to support activities of daily living, not attempting to achieve a specific pain score on the 0-10 Visual Analog Scale. The current opiate medications are providing sufficient analgesia to allow the patient to participate in activities of daily living. The patient is not exhibiting any aberrant behavior suggestive of drug diversion. The patient is not having any adverse reactions to medications. The patient is not suffering from daytime somnolence or mental acuity changes. The patient is managing opiate-induced constipation with appropriate cpyg-dhf-qprgqyp agents and dietary considerations. The patient was counseled on concern for caution with operating a motor vehicle while using opiate medications. A physical exam was performed and the patient's functional status was evaluated. All patients with back pain were advised against the bed rest greater than 4 days and were advised to return to normal activities. Pain score assessment was noted and the treatment plan was reviewed with the patient. All current medications, both prescribed and OTC were reviewed and reconciled on the electronic medical record. Tobacco screening was accomplished and smoking [facility] [address] [place] [address] PAIN MANAGEMENT CONSULTATION Name: SHAYAN JONES Room #: REG [facility].#: [id number] Admission: 01/19/19 Attend Phys: Kirsten Sarkar Discharge: Date of : 52 Report #: [id number] cessation was advised when indicated. BMI was noted and diet/exercise modification was recommended for all patients following outside normal parameters. I reviewed with the patient today their responsibilities to safeguard prescription medications, reviewed their responsibility to utilize medications only as prescribed by the physician. They are to seek and receive pain medications only from 1 physician group ( [facility]). They are to use 1 pharmacy and keep the clinic informed if they change pharmacies. Their responsibilities include making followup visits in a timely fashion and to avoid abrupt discontinuation of medication usage. Their responsibilities further include bringing their medications (bottles from the pharmacy with residual pills) to the visit for possible confirmation of pill counts and the patient understands it is their responsibility to submit to random drug screens to ensure both that the medications prescribed are present, and that no other controlled substances are present. All prescriptions provided today were generated electronically. PLAN: 1. We discussed treatment options with the patient today. The patient feels that her medications are quite beneficial. She has been able to take them sparingly making one month of medications last for 2 months with supplementing Tylenol Extra Strength throughout this time. 2. Scripts given today for hydrocodone 5/325, #90 as well as gabapentin 300 mg t.i.d., #90 with 2 additional refills. 3. The patient reports that her left shoulder is slowly getting better from a recent steroid injection from her orthopedic doctor. 4. The patient is seen in collaboration with Dr. Anthony Bautista who did see the patient as well today. The patient will follow up in 1-2 months as needed. <ELECTRONICALLY SIGNED> By: Kirsten Sarkar 01/20/19 0840 [id number] [id number] Kirsten Sarkar /nt
== END ==
LOC: PAIN 12-24 10:45
DX: M48.061 Spinal stenosis, lumbar region without neurogenic claudication (principal); M54.16 Radiculopathy, lumbar region; I10 Essential (primary) hypertension; F32.9 Major depressive disorder, single episode, unspecified; I48.92 Unspecified atrial flutter; E11.9 Type 2 diabetes mellitus without complications; M19.012 Primary osteoarthritis, left shoulder; Z88.8 Allergy status to other drugs, medicaments and biological substances; Z79.4 Long term (current) use of insulin; Z79.899 Other long term (current) drug therapy

== ENCOUNTER → 2019-02-18 | Outpatient (CLI) | payer OTHER ==
[~2019-02-18] VITALS: Ht 175.3 cm; Wt 174.7 kg
[2019-02-18 11:28] VITALS: BP 146/75
--- NOTE | 2019-02-18 11:46 | NUR ---
Pain Clinic Assessment: 1. History of Osteoarthritis: Left Lower Extremity Right Upper Extremity History of Rheumatoid Arthritis: DENIES 2. Height: 5 ft. 9 in. 175.3 cm. Weight: 385.2 lb. oz. 174.726 kg. Patient's BMI: 56.9 3. Vital Signs: BP: 146/75 Pulse: 96 Resp: 22 Temp: 02 Sat: 100 ECG Mon: 4. Pain Intensity: 1 BACK 5 SHOULDER 5. Fall Risk: Dizziness: N Needs help standing or walking: Y Fallen in the last 3 months: N Fall risk comments: 6. Patient on Blood Thinner: *ELiquis 7. History of Hypertension: Y 8. Opioid Therapy greater than 6 weeks: Y Opiate Contract Signed: 06/25/18 9. Risk Assessment Tool Provided: Opioid Risk Tool 10. Functional Assessment Tool: 11. Recreational Drug Use: Never Drug Type: Tobacco Use: Former Smoker Tobacco Type: Amount or Packs/day: How Many Years: Alcohol Use: No Frequency: Quant:
--- NOTE | 2019-02-21 11:59 | HPC ---
[facility] [address] [place] [address] PAIN MANAGEMENT CONSULTATION Name: SHAYAN JONES Room #: REG [facility]#: [id number] Admission: 02/18/19 Attend Phys: Kirsten Sarkar Discharge: Date of : 52 Report #: [id number] THIS REPORT FOR: //name// CC: Kirsten Sarkar [facility] DATE OF SERVICE: 02/18/2019 CHIEF COMPLAINT: Low back pain, bilateral leg pain. HISTORY OF PRESENT ILLNESS: This is a very pleasant 68-year-old female who returns to the pain clinic today for refill of her medications. She states overall her back pain is doing quite well, rating at a 1/10 today. She feels that the hydrocodone is very beneficial in controlling this as well as her gabapentin, which she has been on for a significant amount of time. She is having quite a bit of left shoulder pain. She reports that she had an injection about 6 weeks ago, thought it was very beneficial, though her pain is slowly returning. She is going to see the orthopedic next week for possible injection or other therapies that he recommends. The patient does have problems lifting that arm and reaching without pain. The patient notices that her weight is significantly up, it has been increasing over her last few visits. Today, it is up 14 pounds from her last visit a month ago. She weighed 352 in July. Today, her weight is 385. She says this is due to her insulin medication that she has started since July. 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 ALLERGIES: LEVAQUIN. CURRENT LIST OF MEDICATIONS: Gabapentin 300 mg 3 times a day, hydrocodone 5/325 t.i.d. p.r.n., vitamin B12, vitamin B complex, NovoLog insulin sliding scale, Lantus 40 units at bedtime, Lipitor 40 mg daily, Eliquis 5 mg b.i.d., diltiazem 120 mg b.i.d., Paxil 40 mg daily, VESIcare 10 mg daily, atenolol 75 mg b.i.d. and aspirin. PQRS: 1. She is being treated for osteoarthritis and denies any rheumatoid changes. 2. Height is 5 feet 9 inches, weight is 385, BMI is 56. 3. Vital signs 146/75, pulse is 96, respirations 22, oxygen is 100%. 4. Pain score 1/10 in her back, 5/10 in her left shoulder. 5. Denies dizziness. Does need help walking and standing. She is in a wheelchair and has a walker today, has not fallen in the last 3 months. 6. The patient is on Eliquis as well as medicine for blood pressure. 7. Opioid therapy is greater than 6 weeks; therefore, an opioid signed contract is on the chart. [address] [address] PAIN MANAGEMENT CONSULTATION Name: SHAYAN JONES Room #: REG JOSAFAT Smith#: [id number] Admission: 02/18/19 Attend Phys: Kirsten Sarkar Discharge: Date of : 52 Report #: [id number] 8. Her risk assessment tool is low. 9. Functional assessment is 29/70. 10. Recreational drug use, she denies. She is a former smoker and does not drink alcohol. According to the prescription monitoring system, she is filling appropriately for her medications in a timely fashion. According to the CDC guidelines, her morphine mEq is 15 per day, well under their guidelines. There is a recent drug screen that is appropriate as well on the chart. PHYSICAL EXAMINATION: GENERAL: This is a well-developed, morbidly obese female appearing her stated age, placing her current pain score at 1/10 in her back today. HEENT: Normocephalic, atraumatic. Extraocular eye muscles are intact. Mucous membranes are moist. NECK: Without adenopathy or JVD. ABDOMEN: Protuberant, but nontender. MUSCULOSKELETAL: She has pain in her left shoulder with rotation and abduction, rating pain score a 5/10 today. She has tenderness in her lumbar spine that radiates across her hips into the L5-S1 dermatomal distribution. Her lower extremity strength judged to be 5/5 and deconditioned in her lower extremities. She is without significant scoliosis, kyphosis or lordosis. She does have an antalgic gait using a rolling walker. IMPRESSION: 1. History of spinal stenosis. 2. Lumbar radiculopathy following the L5-S1 dermatomal distribution. 3. Left shoulder pain with osteoarthritis. 4. Hypertension. 5. Morbid obesity. 6. Type 2 diabetes. 7. Atrial flutter. 8. Complex medical management under terms of written opioid agreement. We reviewed the fact that opiate medications are being used to provide analgesia adequate to support activities of daily living, not attempting to achieve a specific pain score on the 0-10 Visual Analog Scale. The current opiate medications are providing sufficient analgesia to allow the patient to participate in activities of daily living. The patient is not exhibiting any aberrant behavior suggestive of drug diversion. The patient is not having any adverse reactions to medications. The patient is not suffering from daytime somnolence or mental acuity changes. The patient is managing opiate-induced constipation with appropriate aiwe-jye-rboreht agents and dietary considerations. The patient was counseled on concern for caution with operating a motor vehicle while using opiate medications. [facility] [address] [place] [address] PAIN MANAGEMENT CONSULTATION Name: MARBELLADUANESHAYAN Aldridge [id number] Admission: 02/18/19 Attend Phys: Kirsten Sarkar Discharge: Date of : 52 Report #: [id number] A physical exam was performed and the patient's functional status was evaluated. All patients with back pain were advised against the bed rest greater than 4 days and were advised to return to normal activities. Pain score assessment was noted and the treatment plan was reviewed with the patient. All current medications, both prescribed and OTC were reviewed and reconciled on the electronic medical record. Tobacco screening was accomplished and smoking cessation was advised when indicated. BMI was noted and diet/exercise modification was recommended for all patients following outside normal parameters. I reviewed with the patient today their responsibilities to safeguard prescription medications, reviewed their responsibility to utilize medications only as prescribed by the physician. They are to seek and receive pain medications only from 1 physician group ([facility]). They are to use 1 pharmacy and keep the clinic informed if they change pharmacies. Their responsibilities include making followup visits in a timely fashion and to avoid abrupt discontinuation of medication usage. Their responsibilities further include bringing their medications (bottles from the pharmacy with residual pills) to the visit for possible confirmation of pill counts and the patient understands it is their responsibility to submit to random drug screens to ensure both that the medications prescribed are present, and that no other controlled substances are present. All prescriptions provided today were generated electronically. PLAN: 1. We discussed treatment options with the patient today. The patient feels the hydrocodone is very beneficial in controlling her pain, rating at only a 1. She does also take her gabapentin 3 times a day. Scripts only needed for her hydrocodone 5/325, #90. We have given her today's script as well as 4-week release. I explained to her that she has now been seeing us for 1 year for medication management. We will be able to see her on a bimonthly basis. 2. The patient's weight has significantly increased since she has started insulin per her report. I encouraged her to talk to her primary care doctor and sign builder supervisor about this. She is on gabapentin, which does sometimes increase weight, but she has been on this medication prior to the significant weight increase. The patient tells me it is harder to be as active as she was like due to the increased weight. It is not pain related since the hydrocodone is helping with that. 3. The patient does have left shoulder pain. She is seeing her orthopedic again next week. The first injection was quite beneficial. She is hopeful to have another one next week. [address] [address] PAIN MANAGEMENT CONSULTATION Name: SHAYAN JONES Room #: REG CL[facility] Smith#: [id number] Admission: 02/18/19 Attend Phys: Kirsten Sarkar Discharge: Date of : 52 Report #: [id number] 4. The patient will be seen in collaboration with Dr. Anthony Bautista today. We will see her back in 2 months. <ELECTRONICALLY SIGNED> By: Kirsten Sarkar 02/21/19 1159 [id number] [id number] Kirsten Sarkar /nt
== END ==
LOC: PAIN 06:48
DX: M48.061 Spinal stenosis, lumbar region without neurogenic claudication (principal); M54.16 Radiculopathy, lumbar region; M19.012 Primary osteoarthritis, left shoulder; M19.011 Primary osteoarthritis, right shoulder; I10 Essential (primary) hypertension; E11.9 Type 2 diabetes mellitus without complications; I48.92 Unspecified atrial flutter; E66.9 Obesity, unspecified; M79.604 Pain in right leg; Z79.891 Long term (current) use of opiate analgesic

== ENCOUNTER → 2019-05-04 | Outpatient (CLI) | payer OTHER ==
[~2019-05-04] VITALS: Ht 172.7 cm; Wt 167.7 kg
[~2019-05-04] MED LIST changes: -DILTIAZEM 24HR120 M2 PO; +DILTIAZEM 24HR300 M2 PO
[2019-05-04 13:09] VITALS: BP 136/78
--- NOTE | 2019-05-04 13:18 | NUR ---
Pain Clinic Assessment: 1. History of Osteoarthritis: Left Lower Extremity Right Upper Extremity History of Rheumatoid Arthritis: DENIES 2. Height: 5 ft. 8 in. 172.7 cm. Weight: 369.8 lb. oz. 167.741 kg. Patient's BMI: 56.2 3. Vital Signs: BP: 136/78 Pulse: 102 Resp: 14 Temp: 02 Sat: 96 ECG Mon: 4. Pain Intensity: 1-2 BACK 3-4 SHOULDER 5. Fall Risk: Dizziness: Y Needs help standing or walking: Y Fallen in the last 3 months: N Fall risk comments: 6. Patient on Blood Thinner: *ELiquis 7. History of Hypertension: Y 8. Opioid Therapy greater than 6 weeks: Y Opiate Contract Signed: 06/25/18 9. Risk Assessment Tool Provided: Opioid Risk Tool 10. Functional Assessment Tool: 11. Recreational Drug Use: Never Drug Type: Tobacco Use: Former Smoker Tobacco Type: Amount or Packs/day: How Many Years: Alcohol Use: No Frequency: Quant:
--- NOTE | 2019-05-05 08:48 | HPC ---
[facility] [address] [address] PAIN MANAGEMENT CONSULTATION Name: ROBERTSHAYAN Oly [id number] Admission: 05/04/19 Attend Phys: Kirsten Sarkar Discharge: Date of : 52 Report #: [id number] THIS REPORT FOR: //name// CC: Kirsten Bautista MD DATE OF SERVICE: 05/04/2019 CHIEF COMPLAINT: Low back pain, bilateral leg pain. HISTORY OF PRESENT ILLNESS: This is a 69-year-old female who returns to the pain clinic today for a refill of her medications. She is reporting a pain score in her back of 1 to 2 today. She states that her shoulders have been hurting, and that pain score is a 3 to 4. She says she has an aching, burning pain that is worse with any standing or prolonged activity, or been using her arm too much. She feels the medications are very beneficial in controlling her pain with limited side effects. The patient does report that she recently went to [place] due to a in the family. While she was there, she was treated for cellulitis of her left lower extremity. It was not resolving with antibiotics. They believe she has been having venous stasis ulcers, which the patient feels has improved since she has been home and has been wearing her compression stockings, but she does have an appointment with her primary care doctor next week. We encouraged her to see her steward dishwasher as well. ALLERGIES: LEVAQUIN. CURRENT LIST OF MEDICATIONS: Hydrocodone 5/325 up to 3 tablets a day, gabapentin 300 mg 3 times a day, vitamin B, vitamin B complex, NovoLog, Lantus, Lipitor, Eliquis, diltiazem, Paxil, VESIcare, atenolol and aspirin. PQRS: 1. She has osteoarthritis of her lower extremities. Denies any rheumatoid arthritis. 2. Height is 5 feet 8 inches, weight is 369, BMI is 56. 3. Vital signs; blood pressure 136/78, pulse is 102, respirations 14, oxygen sat is 96. 4. Pain score is 1 to 2 in her back and 3 to 4 in her shoulders. 5. Complains of slight dizziness. Does use a walker at all times. Has not fallen in the last 3 months. 6. The patient is on Eliquis and also medicines for hypertension. 7. Opioid therapy is greater than 6 weeks; therefore, an opioid signed contract is on the chart. Her risk assessment is low. Functional assessment is 29/70. 8. Recreational drug use, she denies. She [place] a former [place] [address] PAIN MANAGEMENT CONSULTATION Name: SHAYAN JONES Room #: REG JOSAFAT Smith#: [id number] Admission: 05/04/19 Attend Phys: Kirsten Sarkar Discharge: Date of : 52 Report #: [id number] drink alcohol. According to the prescription monitoring system, the patient is past due to fill her medications. There is a recent drug screen on the chart that is appropriate as well. PHYSICAL EXAMINATION: GENERAL: This is a well-developed, morbidly obese female appearing her stated age, placing her current pain score at 1 to 2 in her lumbar spine. HEENT: Normocephalic, atraumatic. Extraocular eye muscles are intact. Mucous membranes are moist. ABDOMEN: Protuberant and nontender. MUSCULOSKELETAL: She has pain in her left shoulder with abduction and rotation. Tenderness in her lumbosacral area that radiates into her hips, following her L5-S1 dermatomal distribution. She has 1+ edema in her lower extremities, and numbness and tingling in her bilateral feet. Her lower extremity strength judged to be 5/5 and deconditioned in her lower extremities. She uses a rolling walker and has an antalgic gait. Her lower extremities are discolored, does have some flaky areas from her recent possible cellulitis on her left lower extremity. IMPRESSION: 1. History of spinal stenosis. 2. Lumbar radiculopathy at the L5-S1 dermatomal distribution. 3. Left shoulder pain with osteoarthritis. 4. Hypertension. 5. Morbid obesity. 6. Type 2 diabetes, requiring insulin. 7. Atrial flutter, on anticoagulation. 8. Complex medical management under terms of written opioid agreement. We reviewed the fact that opiate medications are being used to provide analgesia adequate to support activities of daily living, not attempting to achieve a specific pain score on the 0-10 Visual Analog Scale. The current opiate medications are providing sufficient analgesia to allow the patient to participate in activities of daily living. The patient is not exhibiting any aberrant behavior suggestive of drug diversion. The patient is not having any adverse reactions to medications. The patient is not suffering from daytime somnolence or mental acuity changes. The patient is managing opiate-induced constipation with appropriate shxk-fry-ifgrmsw agents and dietary considerations. The patient was counseled on concern for caution with operating a motor vehicle while using opiate medications. PLAN: 1. We discussed treatment options with the patient today. The patient did have to decrease her hydrocodone when she was in [place] for an extended period [facility] [address] [place] [address] PAIN MANAGEMENT CONSULTATION Name: SHAYAN JONES Room #: REG [facility]#: [id number] Admission: 05/04/19 Attend Phys: Kirsten Sarkar Discharge: Date of : 52 Report #: [id number] of time. She has since returned to her 3 tablets a day. She does realize how beneficial they are in controlling her pain while taking 3 tablets a day. When she had to reduce her medications, she did have increased pain and supplemented it with Tylenol. We will refill her medications today of hydrocodone 5/325, #90 for today and 4 weeks. 2. We will refill gabapentin 300 mg t.i.d., #90 with 2 additional refills. These will be electronically sent to her pharmacy. 3. I encouraged her to see her primary care doctor regarding her venous stasis versus cellulitis in her left lower extremity, and also to make an appointment with her steward dishwasher. The patient is seen in collaboration today with Dr. Anthony Bautista. <ELECTRONICALLY SIGNED> By: Kirsten Sarkar 05/05/19 0848 [id number] Kirsten Sarkar /nt
== END ==
LOC: PAIN 06:59
DX: Z76.0 Encounter for issue of repeat prescription (principal); M48.061 Spinal stenosis, lumbar region without neurogenic claudication; M54.17 Radiculopathy, lumbosacral region; M19.012 Primary osteoarthritis, left shoulder; I10 Essential (primary) hypertension; E66.01 Morbid (severe) obesity due to excess calories; E11.9 Type 2 diabetes mellitus without complications; Z79.4 Long term (current) use of insulin; Z79.899 Other long term (current) drug therapy; Z79.891 Long term (current) use of opiate analgesic

== ENCOUNTER → 2019-12-16 | Outpatient (CLI) | payer OTHER ==
[~2019-12-16] VITALS: Ht 175.3 cm; Wt 166.0 kg
--- NOTE | ~2019-12-16 | HPC ---
[facility] [address] [place] [address] PAIN MANAGEMENT CONSULTATION Name: SHAYAN JONES Room #: REG [facility]#: [id number] Admission: 12/16/19 Attend Phys: Sylvain Bautista MD Discharge: Date of : 52 Report #: [id number] THIS REPORT FOR: cc: Clyde Alston MD, Christopher B. MD Brown, N. Wayne MD ~ CC: Clyde Bautista DATE OF SERVICE: 12/16/2019 CHIEF COMPLAINT: Here for medication renewal. HISTORY: The patient is a 69-year-old female who has been followed in the pain clinic because of chronic low back and bilateral leg pain. She rates her pain today as 7-8/10. Pain is located in her low back and knees. She also has problems and discomfort in the left foot. She has some left shoulder discomfort. She describes her pain as aching and burning. She has been taking less medication. She has been staying at home because of the COVID-19 problem. She is rarely ventured out of her home. She feels that her medications are beneficial. She is not having any complications with their use. She would like to have them renewed. ALLERGIES: LEVAQUIN. CURRENT MEDICATIONS: Hydrocodone 5/325 one p.o. t.i.d., gabapentin 300 mg t.i.d., vitamin B complex, NovoLog, Lantus, Lipitor, Eliquis, diltiazem, Paxil, VESIcare, atenolol, aspirin. PAIN CLINIC ASSESSMENT AND PQRS: 1. The patient has some lower extremity discomfort as well as right upper extremity discomfort. The patient is not being treated for rheumatoid arthritis. 2. Height 5 feet 9 inches, weight 366 pounds, and BMI is 54. 3. Vital signs: Blood pressure 145/73, pulse 105, respiratory rate is 20, room air saturation 98%. 4. Pain intensity 7-8/10. 5. Fall history: The patient has not fallen since we saw her last. 6. Blood thinner. The patient is on a blood thinning medication, Eliquis. 7. Hypertension. The patient is being treated for hypertension. 8. Opioids greater than 6 weeks. The patient receives medications from one source. 9. Risk assessment tool, low for opioid use. 10. Functional assessment tool 53/70. 11. Recreational drug use. The patient denies. 12. Tobacco: The patient is a former smoker. [address] [address] PAIN MANAGEMENT CONSULTATION Name: SHAYAN JONES Room #: REG [facility]#: [id number] Admission: 12/16/19 Attend Phys: Sylvain Bautista MD Discharge: Date of : 52 Report #: [id number] 13. Alcohol. The patient denies frequent use of alcoholic beverages. PHYSICAL EXAMINATION: GENERAL: The patient is a well-developed, morbidly obese white female, appears her stated age. She is alert and oriented x 3. She is wearing a facial covering. HEART: Regular rate. ABDOMEN: Protuberant. MUSCULOSKELETAL: Upper extremity muscle strength, the patient has pain in her left shoulder with abduction and rotation. Has some tenderness in the lumbosacral area that radiates down to her hips following the L5-S1 dermatomal distribution. The patient has pain in the low back and in the knees. Also, has pain in her left foot. She is in a rolling walker. Slow antalgic gait. IMPRESSION: 1. History of spinal stenosis. 2. Lumbar radiculopathy at the L5-S1 dermatomal distribution. 3. Left shoulder pain with osteoarthritis. 4. Hypertension. 5. Morbid obesity. 6. Type 2 diabetes, requiring insulin. 7. History of atrial flutter, on anticoagulation. 8. Complex medical management with use of opioid medications. RECOMMENDATIONS: We discussed treatment options with the patient. At this juncture, we will continue with her medications. She has been home sheltering in because of the pandemic. 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 She feels that her medications of hydrocodone have been efficacious and ____ her to engage in more activities with less discomfort. She also feels that the Neurontin 300 mg is helpful. We will continue with Neurontin 300 mg 1 p.o. t.i.d. We will also write for 2 months of the hydrocodone medication. We will send the medications to her pharmacy. She will call us if she has any concerns. We would like to thank you for letting us participate in her care. We hope she continues to improve. By: 2 56 Sylvain Bautista MD /sascha
[2019-12-16 12:52] VITALS: BP 147/73
--- NOTE | 2019-12-16 13:04 | NUR ---
Pain Clinic Assessment: 1. History of Osteoarthritis: Left Lower Extremity Right Upper Extremity History of Rheumatoid Arthritis: DENIES 2. Height: 5 ft. 9 in. 175.3 cm. Weight: 366.0 lb. oz. 166.017 kg. Patient's BMI: 54.0 3. Vital Signs: BP: 147/73 Pulse: 105 Resp: 20 Temp: 02 Sat: 98 ECG Mon: 4. Pain Intensity: 7-8 5. Fall Risk: Dizziness: N Needs help standing or walking: N Fallen in the last 3 months: N Fall risk comments: 6. Patient on Blood Thinner: *Biancaquis 7. History of Hypertension: Y 8. Opioid Therapy greater than 6 weeks: Y Opiate Contract Signed: 06/25/18 9. Risk Assessment Tool Provided: 2-LOW 10. Functional Assessment Tool: 11. Recreational Drug Use: Never Drug Type: Tobacco Use: Former Smoker Tobacco Type: Amount or Packs/day: How Many Years: Alcohol Use: No Frequency: Quant:
== END ==
LOC: PAIN 07-08 10:45
PROVIDERS: ATTEND Anesthesiology Pain Medicine
DX: M47.817 Spondylosis without myelopathy or radiculopathy, lumbosacral region (principal); M79.604 Pain in right leg; M79.605 Pain in left leg; M19.012 Primary osteoarthritis, left shoulder; I10 Essential (primary) hypertension; E66.01 Morbid (severe) obesity due to excess calories; E11.9 Type 2 diabetes mellitus without complications; F11.20 Opioid dependence, uncomplicated; Z88.8 Allergy status to other drugs, medicaments and biological substances; Z79.899 Other long term (current) drug therapy

== ENCOUNTER → 2020-03-16 | Outpatient (CLI) | payer OTHER ==
[~2020-03-16] VITALS: Ht 175.3 cm; Wt 151.0 kg
[2020-03-16 08:19] VITALS: BP 104/69
--- NOTE | 2020-03-16 08:26 | NUR ---
Pain Clinic Assessment: 1. History of Osteoarthritis: Left Lower Extremity Right Upper Extremity History of Rheumatoid Arthritis: DENIES 2. Height: 5 ft. 9 in. 175.3 cm. Weight: 332.8 lb. oz. 150.958 kg. Patient's BMI: 49.1 3. Vital Signs: BP: 104/69 Pulse: 124 Resp: 18 Temp: 02 Sat: 94 ECG Mon: 4. Pain Intensity: 3 TO 4 5. Fall Risk: Dizziness: N Needs help standing or walking: N Fallen in the last 3 months: Y Fall risk comments: PT FELL 2 MOS AGO GETTING THE MAIL. DENIES INJURY 6. Patient on Blood Thinner: *ELiquis 7. History of Hypertension: Y 8. Opioid Therapy greater than 6 weeks: Y Opiate Contract Signed: 06/25/18 9. Risk Assessment Tool Provided: 2-LOW 10. Functional Assessment Tool: 11. Recreational Drug Use: Never Drug Type: Tobacco Use: Former Smoker Tobacco Type: Amount or Packs/day: How Many Years: Alcohol Use: No Frequency: Quant:
== END ==
LOC: PAIN 06:41
PROVIDERS: ATTEND Anesthesiology Pain Medicine
DX: M54.16 Radiculopathy, lumbar region (principal); M48.061 Spinal stenosis, lumbar region without neurogenic claudication; M19.012 Primary osteoarthritis, left shoulder; I10 Essential (primary) hypertension; E66.01 Morbid (severe) obesity due to excess calories; E11.9 Type 2 diabetes mellitus without complications; Z79.84 Long term (current) use of oral hypoglycemic drugs; Z79.891 Long term (current) use of opiate analgesic

== ENCOUNTER → 2020-07-20 | Outpatient (CLI) | payer OTHER ==
[~2020-07-20] VITALS: Ht 175.3 cm; Wt 150.5 kg
[2020-07-20 10:10] VITALS: BP 105/72
--- NOTE | 2020-07-20 10:25 | NUR ---
Pain Clinic Assessment: 1. History of Osteoarthritis: Left Lower Extremity Right Upper Extremity History of Rheumatoid Arthritis: DENIES 2. Height: 5 ft. 9 in. 175.3 cm. Weight: 331.8 lb. oz. 150.504 kg. Patient's BMI: 49.0 3. Vital Signs: BP: 105/72 Pulse: 91 Resp: 20 Temp: 02 Sat: 98 ECG Mon: 4. Pain Intensity: 6 5. Fall Risk: Dizziness: N Needs help standing or walking: Y Fallen in the last 3 months: N Fall risk comments: PT FELL 2 MOS AGO GETTING THE MAIL. DENIES INJURY 6. Patient on Blood Thinner: *ELiquis 7. History of Hypertension: Y 8. Opioid Therapy greater than 6 weeks: Y Opiate Contract Signed: 06/25/18 9. Risk Assessment Tool Provided: 2-LOW 10. Functional Assessment Tool: 53/ 11. Recreational Drug Use: Never Drug Type: Tobacco Use: Former Smoker Tobacco Type: Amount or Packs/day: How Many Years: Alcohol Use: No Frequency: Quant:
== END ==
LOC: PAIN
PROVIDERS: ATTEND Anesthesiology Pain Medicine
DX: M48.061 Spinal stenosis, lumbar region without neurogenic claudication (principal); M54.16 Radiculopathy, lumbar region; M19.012 Primary osteoarthritis, left shoulder; I10 Essential (primary) hypertension; E66.01 Morbid (severe) obesity due to excess calories; E11.9 Type 2 diabetes mellitus without complications; I48.91 Unspecified atrial fibrillation; Z79.4 Long term (current) use of insulin; Z79.01 Long term (current) use of anticoagulants; Z79.899 Other long term (current) drug therapy; Z79.891 Long term (current) use of opiate analgesic

== ENCOUNTER → 2020-08-23 | Outpatient (CLI) | payer OTHER | LOC: SJCVCIMAG 09:33 | PROVIDERS: ATTEND Internal Medicine Cardiovascular Disease | DX: I11.9 Hypertensive heart disease without heart failure (principal); I48.91 Unspecified atrial fibrillation; R60.9 Edema, unspecified ==